=== PATIENT | female | born 1945 | race African-American/Black ===

== ENCOUNTER 2016-12-29 01:36 | Emergency (ER) | payer MEDICARE, MEDICAID ==
[~2016-12-29] VITALS: Ht 170.2 cm; Wt 91.0 kg
[~2016-12-29 01:36] MED LIST: AMLO10TA80 PO; ASPI-1035 PO; DOCU-150 PO; DORZ10DR9 EACHEYE; FERR-63 PO; LEVO250T2 PO; LOP25 PO; SIMV20TA6 PO; SITA100T6 PO; TRAV2.5D EACHEYE
[2016-12-29 01:54] VITALS: BP 149/65
== END 2016-12-29 06:30 | disposition left against medical advice (07) ==
LOC: ER 06:04
DX: Z53.21 Procedure and treatment not carried out due to patient leaving prior to being seen by health care provider (principal); I10 Essential (primary) hypertension; E11.9 Type 2 diabetes mellitus without complications; M19.90 Unspecified osteoarthritis, unspecified site; Z88.0 Allergy status to penicillin; Z88.6 Allergy status to analgesic agent

== ENCOUNTER 2017-01-21 13:12 | Emergency (ER) | payer MEDICARE, MEDICAID ==
[~2017-01-21] VITALS: Ht 170.2 cm; Wt 91.0 kg
[2017-01-21 15:14] LABS: BASOPHILS % 0.6 % (0.0-2.0); EOSINOPHILS % 2.5 % (0.0-5.0); HEMATOCRIT. 32.5 % (36.0-48.0); HEMOGLOBIN. 10.6 g/dL (12.0-16.0); LYMPHOCYTES % 12.4 % (20.0-50.0); MEAN CORPUSCULAR HGB CONC 32.5 g/dL (31.0-37.0); MEAN CORPUSCULAR VOLUME 98.5 fL (81.0-99.0); MEAN PLATELET VOLUME 9.9 fl (7.4-10.4); MONOCYTES % 7.4 % (2.0-8.0); NEUTROPHILS % 77.1 % (40.0-76.0); PLATELET 186 x1000/uL (130-400); RED CELL DISTRIBUTION WIDTH 13.3 % (11.6-14.6); WHITE BLOOD COUNT 8.8 x1000/uL (4.5-11.0)
[2017-01-21 15:15] LABS: CHLORIDE 112 mEq/L (98-107); INDEX HEMOLYSI 1 (1-3); INDEX ICTERIC 1 (1-4); INDEX LIPEMIC 1 (1-3); PROTHROMBIN TIME 10.3 sec
[2017-01-21 15:22] LABS: ALANINE AMINOTRANSFERASE 12 IU/L (13-61); ALBUMIN 3.4 g/dL (3.4-5.0); ANION GAP 14; CALCIUM 8.7 mg/dL (8.5-10.1); CARBON DIOXIDE 22 mEq/L (21-32); UREA NITROGEN BLOOD 34 mg/dL (7-21); eGFR 30 mL/min (>60)
[2017-01-21 18:08] VITALS: BP 114/61
== END 2017-01-21 18:08 | disposition home or self-care (01) ==
LOC: ER 16:15
DX: S83.92XA Sprain of unspecified site of left knee, initial encounter (principal); N28.9 Disorder of kidney and ureter, unspecified; I12.9 Hypertensive chronic kidney disease with stage 1 through stage 4 chronic kidney disease, or unspecified chronic kidney disease; N18.9 Chronic kidney disease, unspecified; M19.90 Unspecified osteoarthritis, unspecified site; E11.9 Type 2 diabetes mellitus without complications; Z88.0 Allergy status to penicillin; Z88.5 Allergy status to narcotic agent; Z79.82 Long term (current) use of aspirin; Z79.899 Other long term (current) drug therapy; Z87.891 Personal history of nicotine dependence; X58.XXXA Exposure to other specified factors, initial encounter; Y93.89 Activity, other specified; Y92.89 Other specified places as the place of occurrence of the external cause; Y99.8 Other external cause status
CPT/HCPCS: 36415; 80053; 85025; 85610; 93971; 99285

== ENCOUNTER 2017-04-11 10:05 | Inpatient (IN) | payer MEDICARE, MEDICAID ==
[~2017-04-11] VITALS: Ht 170.2 cm; Wt 90.7 kg
[~2017-04-11 10:05] MED LIST changes: -ASPI-1035 PO; +ASPI-1159 PO
[2017-04-11 11:36] LABS: BASOPHILS % 0.4 % (0.0-2.0); EOSINOPHILS % 1.6 % (0.0-5.0); HEMATOCRIT. 34.7 % (36.0-48.0); HEMOGLOBIN. 11.5 g/dL (12.0-16.0); LYMPHOCYTES % 11.7 % (20.0-50.0); MEAN CORPUSCULAR HEMOGLOBIN 31.6 pg (28.0-32.0); MEAN CORPUSCULAR VOLUME 95.2 fL (81.0-99.0); MEAN PLATELET VOLUME 9.6 fl (7.4-10.4); MONOCYTES % 7.1 % (2.0-8.0); NEUTROPHILS % 79.2 % (40.0-76.0); PLATELET 192 x1000/uL (130-400); RED BLOOD CELL COUNT 3.64 mill/uL (4.2-5.4); RED CELL DISTRIBUTION WIDTH 13.3 % (11.6-14.6)
[2017-04-11 11:50] LABS: PROTHROMBIN TIME 10.7 sec
[2017-04-11 11:51] LABS: CARBON DIOXIDE 26 mEq/L (21-32); CHLORIDE 113 mEq/L (98-107)
[2017-04-11 11:54] LABS: TROPONIN I < 0.02 ng/mL (0.00-0.04)
[2017-04-11 12:34] LABS: CLARITY URINE CLOUDY (CLEAR); COLOR URINE YELLOW (YELLOW); GLUCOSE URINE NEGATIVE (NEGATIVE); KETONES URINE NEGATIVE (NEGATIVE); LEUKOCYTE ESTERASE URINE 2+ (NEGATIVE); NITRITE URINE NEGATIVE (NEGATIVE); OCCULT BLOOD URINE TRACE (NEGATIVE); PH URINE 5.5 (4.5-8.0); PROTEIN URINE 1+ (NEGATIVE); SPECIFIC GRAVITY URINE 1.009 (1.005-1.030); UROBILINOGEN URINE 0.2 E.U./dL (0.2-1.0)
[2017-04-11] MEDS ORDERED: FUROSEMIDE 40MG/4ML VIAL IVP ONE (13:00)
[2017-04-11] MEDS ORDERED: ASPIRIN 81MG TABLET PO ONE (13:00)
[2017-04-11 17:30] VITALS: BP 160/90
[2017-04-11] MEDS ORDERED: DOCUSATE SODIUM 100MG CAPSULE PO PRN (18:00)
[2017-04-11] MEDS ORDERED: MAGNESIUM/ALUMINUM HYDROXIDE/SIMETHICONE 30ML UDC PO PRN (18:00)
[2017-04-11] MEDS ORDERED: ACETAMINOPHEN 325MG TABLET PO PRN (18:00)
[2017-04-11] MEDS ORDERED: CLONIDINE 0.1MG TABLET PO PRN (18:00)
[2017-04-11] MEDS ORDERED: ENOXAPARIN 40MG/0.4ML SYR SUBCUT SCH (18:00)
[2017-04-11] MEDS ORDERED: DIPHENHYDRAMINE 50MG/ML VIAL IV PRN (18:00)
[2017-04-11] MEDS ORDERED: ONDANSETRON HCL 4MG/2ML VIAL IV PRN (18:00)
[2017-04-11] MEDS ORDERED: GUAIFENESIN 200MG/10ML SUGAR FREE UDC PO PRN (18:00)
[2017-04-11] MEDS: HYDROCODONE/ACETAMINOPHEN 5/325MG TABLET PO PRN ×2 (18:33→22:40)
[2017-04-11 18:45] VITALS: BP 160/90
[2017-04-11 20:00] VITALS: BP 150/85
[2017-04-11] MEDS ORDERED: LEVOFLOXACIN 500MG PREMIX 100 ML IV NR (20:00)
[2017-04-11] MEDS ORDERED: FURO-152 PO (20:11)
[2017-04-11] MEDS ORDERED: SITA100T6 PO (20:14)
[2017-04-11] MEDS ORDERED: DIPH25CA83 PO (20:14)
[2017-04-11] MEDS ORDERED: DEXTROSE 50% WATER 50ML SYRINGE IV PRN (20:15)
[2017-04-11] MEDS ORDERED: DORZ10DR9 EACHEYE (20:23)
[2017-04-11] MEDS ORDERED: TRAV2.5D EACHEYE (20:23)
[2017-04-11] MEDS: METOPROLOL TARTRATE 25MG TABLET PO SCH ×2 (20:43→20:54)
[2017-04-11] MEDS ORDERED: LATANOPROST 0.005% OPHTH DROPS 2.5ML BOTHEYE SCH (21:00)
[2017-04-11] MEDS: BLOOD SUGAR DIAGNOSTIC STRIP TEST SCH (21:00)
[2017-04-11] MEDS ORDERED: NON FORMULARY PATIENT HOME MED EA XX SCH (21:30)
[2017-04-11] MEDS: INSULIN LISPRO 100 UNITS/ML SUBCUT SCH (22:11)
[2017-04-11] MEDS: DORZOLAM/TIMOLOL 2.23/0.68% OPHTH DROPS 10ML BOTHEYE SCH (22:30)
[2017-04-11 23:30] LABS: CREATINE KINASE 81 IU/L (26-192); TROPONIN I < 0.02 ng/mL (0.00-0.04)
[2017-04-11 23:31] LABS: CREATINE KINASE MB FRACTION 1.3 ng/mL (0.5-3.6)
[2017-04-12] VITALS: BP 128/75
[2017-04-12] MEDS: HYDROCODONE/ACETAMINOPHEN 5/325MG TABLET PO PRN (03:42)
[2017-04-12 04:00] VITALS: BP 129/73
[2017-04-12] MEDS: BLOOD SUGAR DIAGNOSTIC STRIP TEST SCH ×2 (06:52→12:06)
[2017-04-12 08:00] VITALS: BP 133/89
[2017-04-12] MEDS ORDERED: AMLODIPINE 10MG TABLET PO SCH (09:00)
[2017-04-12] MEDS ORDERED: ASPIRIN 81MG EC TABLET PO SCH (09:00)
[2017-04-12] MEDS ORDERED: FUROSEMIDE 40MG/4ML VIAL IV SCH (09:00)
[2017-04-12 09:10] LABS: BASOPHILS % 0.4 % (0.0-2.0); EOSINOPHILS % 1.5 % (0.0-5.0); HEMATOCRIT. 33.8 % (36.0-48.0); HEMOGLOBIN. 11.2 g/dL (12.0-16.0); LYMPHOCYTES % 12.6 % (20.0-50.0); MEAN CORPUSCULAR HEMOGLOBIN 31.6 pg (28.0-32.0); MEAN CORPUSCULAR VOLUME 95.3 fL (81.0-99.0); MEAN PLATELET VOLUME 10.2 fl (7.4-10.4); MONOCYTES % 6.4 % (2.0-8.0); NEUTROPHILS % 79.1 % (40.0-76.0); PLATELET 192 x1000/uL (130-400); RED BLOOD CELL COUNT 3.54 mill/uL (4.2-5.4); RED CELL DISTRIBUTION WIDTH 13.7 % (11.6-14.6)
[2017-04-12] MEDS: DORZOLAM/TIMOLOL 2.23/0.68% OPHTH DROPS 10ML BOTHEYE SCH (09:36)
[2017-04-12] MEDS: INSULIN LISPRO 100 UNITS/ML SUBCUT SCH (09:37)
[2017-04-12] MEDS: METOPROLOL TARTRATE 25MG TABLET PO SCH (09:37)
[2017-04-12 09:45] LABS: CARBON DIOXIDE 21 mEq/L (21-32); CHLORIDE 111 mEq/L (98-107); CREATINE KINASE 74 IU/L (26-192); CREATINE KINASE MB FRACTION 1.1 ng/mL (0.5-3.6); HDL CHOLESTEROL 41 mg/dL (40-59); LDL CHOLESTEROL 82 mg/dL (5-100); TROPONIN I < 0.02 ng/mL (0.00-0.04)
[2017-04-12] MEDS ORDERED: LEVOFLOXACIN 250MG PREMIX 50 ML IV SCH (20:00)
== END 2017-04-12 12:25 | disposition left against medical advice (07) | DRG 194 ==
LOC: ER 10:46 → 7WST 14:00 → ENRESERV 14:40 → CANBEDREQ 16:57
PROVIDERS: ADMIT Hospitalist; ATTEND Hospitalist
DX: I13.0 Hypertensive heart and chronic kidney disease with heart failure and stage 1 through stage 4 chronic kidney disease, or unspecified chronic kidney disease (principal); J96.00 Acute respiratory failure, unspecified whether with hypoxia or hypercapnia; E11.22 Type 2 diabetes mellitus with diabetic chronic kidney disease; M19.90 Unspecified osteoarthritis, unspecified site; I50.21 Acute systolic (congestive) heart failure; N18.9 Chronic kidney disease, unspecified; N39.0 Urinary tract infection, site not specified; Z88.6 Allergy status to analgesic agent; Z88.0 Allergy status to penicillin
CPT/HCPCS: 36415; 71010; 80053; 80061; 81001; 82550; 82553; 82962; 83036; 83880; 84484; 85025; 85610; 87077; 87086; 87186; 93005; 93306; 93970; 96374; 99285; J1650; J1815; J1940; J1956; J7050

== ENCOUNTER 2017-08-10 19:15 | Inpatient (IN) | payer MEDICARE, MEDICAID ==
[~2017-08-10] VITALS: Ht 172.7 cm; Wt 113.6 kg
[~2017-08-10 19:15] MED LIST changes: +DIPH25CA83 PO; +FURO-152 PO; +SITA100T11 PO; -SITA100T6 PO
[2017-08-10] MEDS ORDERED: IPRATROPIUM/ALBUTEROL 0.5-3(2.5)MG/3ML NEB HHN ONE (20:00)
[2017-08-10 20:29] LABS: BASOPHILS % 0.6 % (0.0-2.0); EOSINOPHILS % 2.1 % (0.0-5.0); HEMATOCRIT. 33.2 % (36.0-48.0); HEMOGLOBIN. 10.9 g/dL (12.0-16.0); MEAN CORPUSCULAR HEMOGLOBIN 31.4 pg (28.0-32.0); MEAN CORPUSCULAR VOLUME 95.4 fL (81.0-99.0); MONOCYTES % 7.6 % (2.0-8.0); NEUTROPHILS % 78.7 % (40.0-76.0); PLATELET 198 x1000/uL (130-400); RED BLOOD CELL COUNT 3.49 mill/uL (4.2-5.4); RED CELL DISTRIBUTION WIDTH 13.9 % (11.6-14.6)
[2017-08-10 20:37] LABS: PROTHROMBIN TIME 10.5 sec (9.4-11.6)
[2017-08-10 20:48] LABS: CARBON DIOXIDE 20 mEq/L (21-32); CHLORIDE 110 mEq/L (98-107); TROPONIN I < 0.02 ng/mL (0.00-0.04)
[2017-08-10] MEDS ORDERED: ONDANSETRON HCL 4MG/2ML VIAL IV STA (21:05)
[2017-08-10] MEDS ORDERED: SODIUM CHLORIDE 0.9% 1,000 ML IV ONE (21:05)
[2017-08-10] MEDS ORDERED: MORPHINE SULFATE 4 MG/ML CPJ (NOT FOR IM USE) IV STA (21:05)
[2017-08-10] MEDS ORDERED: ASPIRIN 81MG TABLET PO STA (21:12)
[2017-08-10] MEDS ORDERED: FUROSEMIDE 40MG/4ML VIAL IV STA (21:12)
[2017-08-10] MEDS ORDERED: NITROGLYCERIN 0.4MG TABLET SL SL PRN (21:15)
[2017-08-10 21:41] LABS: D-DIMER 1.97 mg/L FEU (<0.50); PARTIAL THROMBOPLASTIN TIME 26.4 sec (23.4-31.0)
[2017-08-11 04:20] VITALS: BP 147/70
[2017-08-11 07:35] VITALS: BP 140/64
[2017-08-11] MEDS ORDERED: MORPHINE SULFATE 4 MG/ML CPJ (NOT FOR IM USE) IV PRN ×2 (07:45→11:30)
[2017-08-11 09:24] LABS: BASOPHILS % 0.4 % (0.0-2.0); EOSINOPHILS % 1.6 % (0.0-5.0); HEMOGLOBIN. 11.4 g/dL (12.0-16.0); LYMPHOCYTES % 9.6 % (20.0-50.0); MEAN CORPUSCULAR HEMOGLOBIN 32.3 pg (28.0-32.0); MEAN CORPUSCULAR VOLUME 96.1 fL (81.0-99.0); MEAN PLATELET VOLUME 10.8 fl (7.4-10.4); MONOCYTES % 6.2 % (2.0-8.0); NEUTROPHILS % 82.2 % (40.0-76.0); PLATELET 201 x1000/uL (130-400); RED BLOOD CELL COUNT 3.54 mill/uL (4.2-5.4); RED CELL DISTRIBUTION WIDTH 13.6 % (11.6-14.6)
[2017-08-11] MEDS ORDERED: DIPHENHYDRAMINE 50MG/ML VIAL IV PRN (11:15)
[2017-08-11] MEDS ORDERED: LORAZEPAM 2MG/ML CPJ IV PRN (11:15)
[2017-08-11] MEDS ORDERED: ONDANSETRON HCL 4MG/2ML VIAL IV PRN (11:15)
[2017-08-11] MEDS ORDERED: FUROSEMIDE 40MG/4ML VIAL IV SCH (11:15)
[2017-08-11] MEDS ORDERED: HYDROCODONE/ACETAMINOPHEN 5/325MG TABLET PO PRN (11:15)
[2017-08-11] MEDS ORDERED: DEXTROSE 50% WATER 50ML SYRINGE IV PRN (11:30)
[2017-08-11] MEDS ORDERED: ENOXAPARIN 40MG/0.4ML SYR SUBCUT SCH (12:00)
[2017-08-11 12:11] VITALS: BP 178/80
[2017-08-11] MEDS ORDERED: MEDICATION NOT ON FORMULARY EA (Simvastatin 20 MG) PO SCH (12:15)
[2017-08-11] MEDS ORDERED: DOCUSATE SODIUM 100MG CAPSULE PO PRN (12:15)
[2017-08-11] MEDS: INSULIN LISPRO 100 UNITS/ML SUBCUT SCH ×3 (13:18→21:11)
[2017-08-11] MEDS: LINAGLIPTIN 5MG TABLET PO SCH (13:19)
[2017-08-11] MEDS: AMLODIPINE 10MG TABLET PO SCH (13:20)
[2017-08-11] MEDS: ASPIRIN 81MG EC TABLET PO SCH (13:20)
[2017-08-11] MEDS: METOPROLOL TARTRATE 25MG TABLET PO SCH ×2 (13:21→21:17)
[2017-08-11] MEDS: FOLIC ACID 1MG TABLET PO SCH (13:22)
[2017-08-11] MEDS: BLOOD SUGAR DIAGNOSTIC STRIP TEST SCH ×3 (13:22→21:19)
[2017-08-11] MEDS: THIAMINE HCL 100MG TABLET PO SCH (13:22)
[2017-08-11] MEDS: ATORVASTATIN CALCIUM 10MG TABLET PO SCH (13:22)
[2017-08-11 15:24] LABS: CREATINE KINASE 77 IU/L (26-192); CREATINE KINASE MB FRACTION 1.4 ng/mL (0.5-3.6); TROPONIN I < 0.02 ng/mL (0.00-0.04)
[2017-08-11 16:12] VITALS: BP 133/62
[2017-08-11] MEDS ORDERED: DIPHENHYDRAMINE 25MG CAPSULE PO PRN (16:30)
[2017-08-11] MEDS ORDERED: MEDICATION NOT ON FORMULARY EA (Travoprost (Travatan Z) 1 DROP) EACHEYE SCH (17:00)
[2017-08-11] MEDS ORDERED: MEDICATION NOT ON FORMULARY EA (Sitagliptin Phosphate (Januvia) 100 MG) PO SCH (17:00)
[2017-08-11 17:39] LABS: CLARITY URINE CLOUDY (CLEAR); COLOR URINE YELLOW (YELLOW); GLUCOSE URINE 1+ (NEGATIVE); KETONES URINE NEGATIVE (NEGATIVE); LEUKOCYTE ESTERASE URINE 3+ (NEGATIVE); NITRITE URINE NEGATIVE (NEGATIVE); OCCULT BLOOD URINE TRACE (NEGATIVE); PROTEIN URINE 2+ (NEGATIVE); SPECIFIC GRAVITY URINE 1.016 (1.005-1.030); UROBILINOGEN URINE 0.2 E.U./dL (0.2-1.0)
[2017-08-11] MEDS: DORZOLAM/TIMOLOL 2.23/0.68% OPHTH DROPS 10ML EACHEYE SCH (17:43)
[2017-08-11 18:20] LABS: *AMPHETAMINES SCREEN URINE NEGATIVE (NEGATIVE); *BARBITURATES SCREEN URINE NEGATIVE (NEGATIVE); *BENZODIAZEPINES SCREEN URINE NEGATIVE (NEGATIVE); *COCAINE SCREEN URINE PRESUMTIVE POSITIVE (NEGATIVE); CANNABINOID URINE SCREEN NEGATIVE (NEGATIVE); METHADONE URINE SCREEN NEGATIVE (NEGATIVE); OPIATES URINE SCREEN PRESUMTIVE POSITIVE (NEGATIVE); PHENCYCLIDINE URINE SCREEN NEGATIVE (NEGATIVE)
[2017-08-11 20:00] VITALS: BP 137/67
[2017-08-11] MEDS ORDERED: LATANOPROST 0.005% OPHTH DROPS 2.5ML BOTHEYE SCH (21:00)
[2017-08-11 23:21] LABS: CREATINE KINASE 74 IU/L (26-192); TROPONIN I < 0.02 ng/mL (0.00-0.04)
[2017-08-12 00:47] VITALS: BP 142/73
[2017-08-12 04:00] VITALS: BP 144/64
[2017-08-12] MEDS: BLOOD SUGAR DIAGNOSTIC STRIP TEST SCH (06:25)
[2017-08-12 07:23] VITALS: BP 133/68
[2017-08-12] MEDS ORDERED: FUROSEMIDE 20MG/2ML VIAL IVP SCH ×2 (09:00)
[2017-08-12] MEDS ORDERED: FUROSEMIDE 20MG TABLET PO SCH (09:00)
[2017-08-12 09:03] LABS: CREATINE KINASE 65 IU/L (26-192); CREATINE KINASE MB FRACTION 1.3 ng/mL (0.5-3.6); TROPONIN I < 0.02 ng/mL (0.00-0.04)
[2017-08-12] MEDS: DORZOLAM/TIMOLOL 2.23/0.68% OPHTH DROPS 10ML EACHEYE SCH (09:34)
[2017-08-12] MEDS: FOLIC ACID 1MG TABLET PO SCH (09:36)
[2017-08-12] MEDS: METOPROLOL TARTRATE 25MG TABLET PO SCH (09:36)
[2017-08-12] MEDS: THIAMINE HCL 100MG TABLET PO SCH (09:36)
[2017-08-12] MEDS: ATORVASTATIN CALCIUM 10MG TABLET PO SCH (09:36)
[2017-08-12] MEDS: ASPIRIN 81MG EC TABLET PO SCH (09:37)
[2017-08-12] MEDS: AMLODIPINE 10MG TABLET PO SCH (09:38)
[2017-08-12] MEDS: INSULIN LISPRO 100 UNITS/ML SUBCUT SCH (09:48)
[2017-08-12] MEDS: LINAGLIPTIN 5MG TABLET PO SCH (09:49)
[2017-08-13] MEDS ORDERED: LEVOFLOXACIN 250MG TABLET PO SCH (11:00)
== END 2017-08-12 10:30 | disposition left against medical advice (07) | DRG 816 ==
LOC: ER 19:15 → 6WST 08-11 00:23 → ENRESERV 08-11 02:32
PROVIDERS: ADMIT Internal Medicine Nephrology; ATTEND Internal Medicine Nephrology
DX: T40.5X1A Poisoning by cocaine, accidental (unintentional), initial encounter (principal); J96.00 Acute respiratory failure, unspecified whether with hypoxia or hypercapnia; I50.43 Acute on chronic combined systolic (congestive) and diastolic (congestive) heart failure; I13.0 Hypertensive heart and chronic kidney disease with heart failure and stage 1 through stage 4 chronic kidney disease, or unspecified chronic kidney disease; E11.22 Type 2 diabetes mellitus with diabetic chronic kidney disease; D64.9 Anemia, unspecified; E44.1 Mild protein-calorie malnutrition; E78.00 Pure hypercholesterolemia, unspecified; E78.5 Hyperlipidemia, unspecified; F17.200 Nicotine dependence, unspecified, uncomplicated; N18.4 Chronic kidney disease, stage 4 (severe); N39.0 Urinary tract infection, site not specified; M19.90 Unspecified osteoarthritis, unspecified site; Z53.21 Procedure and treatment not carried out due to patient leaving prior to being seen by health care provider; R07.81 Pleurodynia; E66.01 Morbid (severe) obesity due to excess calories; Z82.49 Family history of ischemic heart disease and other diseases of the circulatory system; Z83.3 Family history of diabetes mellitus; Z68.38 Body mass index [BMI] 38.0-38.9, adult; Z72.89 Other problems related to lifestyle; Z79.899 Other long term (current) drug therapy; Z79.82 Long term (current) use of aspirin; Z79.2 Long term (current) use of antibiotics; Z88.0 Allergy status to penicillin; Z88.5 Allergy status to narcotic agent
CPT/HCPCS: 36415; 71010; 74176; 78582; 80048; 80053; 80305; 81001; 82550; 82553; 82962; 83690; 83880; 84443; 84484; 85025; 85379; 85610; 85730; 87077; 87086; 87186; 93005; 93970; 94640; 96361; 96374; 96375; 99285; A9558; J1650; J1815; J1940; J2270; J2405; J7030; J7620; Q0163

== ENCOUNTER 2017-12-24 04:24 | Inpatient (IN) | payer MEDICARE, MEDICAID ==
[~2017-12-24] VITALS: Ht 170.2 cm; Wt 90.7 kg
[2017-12-24] MEDS ORDERED: ASPIRIN 81MG TABLET PO ONE (05:30)
[2017-12-24 06:06] LABS: BASOPHILS % 0.5 % (0.0-2.0); EOSINOPHILS % 2.1 % (0.0-5.0); HEMATOCRIT. 28.8 % (36.0-48.0); HEMOGLOBIN. 9.4 g/dL (12.0-16.0); MEAN CORPUSCULAR HEMOGLOBIN 31.8 pg (28.0-32.0); NEUTROPHILS % 79.4 % (40.0-76.0); PLATELET 216 x1000/uL (130-400); RED BLOOD CELL COUNT 2.97 mill/uL (4.2-5.4); RED CELL DISTRIBUTION WIDTH 14.5 % (11.6-14.6)
[2017-12-24 06:14] LABS: PROTHROMBIN TIME 10.4 sec (9.4-11.6)
[2017-12-24 06:18] LABS: CHLORIDE 114 mEq/L (98-107); ETHANOL BLOOD < 10 mg/dL
[2017-12-24 06:38] LABS: CLARITY URINE CLOUDY (CLEAR); COLOR URINE YELLOW (YELLOW); KETONES URINE NEGATIVE (NEGATIVE); LEUKOCYTE ESTERASE URINE 2+ (NEGATIVE); NITRITE URINE NEGATIVE (NEGATIVE); OCCULT BLOOD URINE NEGATIVE (NEGATIVE); PROTEIN URINE 2+ (NEGATIVE); SPECIFIC GRAVITY URINE 1.017 (1.005-1.030); UROBILINOGEN URINE 0.2 E.U./dL (0.2-1.0)
[2017-12-24 07:29] LABS: *AMPHETAMINES SCREEN URINE NEGATIVE (NEGATIVE); *BARBITURATES SCREEN URINE NEGATIVE (NEGATIVE); *COCAINE SCREEN URINE PRESUMTIVE POSITIVE (NEGATIVE); METHADONE URINE SCREEN NEGATIVE (NEGATIVE)
[2017-12-24 07:31] LABS: *BENZODIAZEPINES SCREEN URINE NEGATIVE (NEGATIVE); CANNABINOID URINE SCREEN NEGATIVE (NEGATIVE); OPIATES URINE SCREEN PRESUMTIVE POSITIVE (NEGATIVE); PHENCYCLIDINE URINE SCREEN NEGATIVE (NEGATIVE)
[2017-12-24] MEDS ORDERED: KETOROLAC 30MG/ML VIAL IV ONE (08:30)
[2017-12-24] MEDS ORDERED: ASPIRIN 325MG EC TABLET PO ONE (09:15)
[2017-12-24] MEDS ORDERED: CLONIDINE 0.1MG TABLET PO PRN (12:45)
[2017-12-24] MEDS ORDERED: DOCUSATE SODIUM 100MG CAPSULE PO PRN (12:45)
[2017-12-24] MEDS ORDERED: NITROGLYCERIN 0.4MG TABLET SL SL PRN (12:45)
[2017-12-24] MEDS ORDERED: DIPHENHYDRAMINE 50MG/ML VIAL IV PRN (12:45)
[2017-12-24] MEDS ORDERED: NA PHOS,M-B/NA PHOS,DI-BA ENEMA 118ML PR PRN (12:45)
[2017-12-24] MEDS ORDERED: MAGNESIUM/ALUMINUM HYDROXIDE/SIMETHICONE 30ML UDC PO PRN (12:45)
[2017-12-24] MEDS ORDERED: IPRATROPIUM/ALBUTEROL 0.5-3(2.5)MG/3ML NEB INH PRN (12:45)
[2017-12-24] MEDS ORDERED: ONDANSETRON HCL 4MG/2ML VIAL IV PRN (12:45)
[2017-12-24] MEDS ORDERED: ACETAMINOPHEN 325MG TABLET PO PRN (12:45)
[2017-12-24] MEDS ORDERED: GUAIFENESIN 200MG/10ML SUGAR FREE UDC PO PRN (12:45)
[2017-12-24 12:53] VITALS: BP 186/88
[2017-12-24] MEDS ORDERED: METO-396 PO (13:03)
[2017-12-24 13:07] VITALS: BP 186/88
[2017-12-24] MEDS: ENOXAPARIN 40MG/0.4ML SYR SUBCUT SCH (13:38)
[2017-12-24] MEDS ORDERED: DEXTROSE 50% WATER 50ML SYRINGE IV PRN (15:30)
[2017-12-24 15:59] LABS: CREATINE KINASE 49 IU/L (26-192); CREATINE KINASE MB FRACTION 1.2 ng/mL (0.5-3.6)
[2017-12-24 16:07] VITALS: BP 116/57
[2017-12-24] MEDS ORDERED: MEDICATION NOT ON FORMULARY EA (Travoprost (Travatan Z) 1 DROP) EACHEYE SCH (17:00)
[2017-12-24] MEDS ORDERED: DORZOLAM/TIMOLOL 2.23/0.68% OPHTH DROPS 10ML EACHEYE SCH (17:00)
[2017-12-24] MEDS: BLOOD SUGAR DIAGNOSTIC STRIP TEST SCH ×2 (18:07→21:28)
[2017-12-24] MEDS: INSULIN LISPRO 100 UNITS/ML SUBCUT SCH ×2 (18:15→21:39)
[2017-12-24] MEDS: LORAZEPAM 0.5MG TABLET PO PRN (18:15)
[2017-12-24 20:00] VITALS: BP 137/69
[2017-12-24] MEDS ORDERED: ZOLPIDEM TARTRATE 5MG TABLET PO PRN (21:00)
[2017-12-24] MEDS: KETOROLAC 15MG/ML VIAL IV PRN (21:27)
[2017-12-24] MEDS: LISINOPRIL 20MG TABLET PO SCH (21:27)
[2017-12-24] MEDS: DORZOLAM/TIMOLOL 2.23/0.68% OPHTH DROPS 10ML EACHEYE SCH (21:28)
[2017-12-24] MEDS: LATANOPROST 0.005% OPHTH DROPS 2.5ML EACHEYE SCH (21:28)
[2017-12-24] MEDS: CEFTRIAXONE 1 G PREMIX 50 ML IV SCH (22:02)
[2017-12-24 23:42] LABS: CREATINE KINASE 41 IU/L (26-192); CREATINE KINASE MB FRACTION 1.2 ng/mL (0.5-3.6)
[2017-12-25] VITALS: BP 116/87
[2017-12-25 04:36] VITALS: BP 104/55
[2017-12-25] MEDS: BLOOD SUGAR DIAGNOSTIC STRIP TEST SCH ×4 (06:49→21:18)
[2017-12-25 08:00] VITALS: BP 125/61
[2017-12-25] MEDS: PANTOPRAZOLE SODIUM 40 MG/VIAL IV SCH (08:31)
[2017-12-25] MEDS: DORZOLAM/TIMOLOL 2.23/0.68% OPHTH DROPS 10ML EACHEYE SCH ×3 (08:31→19:26)
[2017-12-25] MEDS: ASPIRIN 325MG EC TABLET PO SCH (08:31)
[2017-12-25] MEDS: LISINOPRIL 20MG TABLET PO SCH (08:32)
[2017-12-25] MEDS: KETOROLAC 15MG/ML VIAL IV PRN ×2 (08:32→21:19)
[2017-12-25] MEDS: ENOXAPARIN 40MG/0.4ML SYR SUBCUT SCH (08:34)
[2017-12-25] MEDS: INSULIN LISPRO 100 UNITS/ML SUBCUT SCH ×4 (08:35→21:18)
[2017-12-25 08:44] LABS: CHLORIDE 114 mEq/L (98-107)
[2017-12-25 12:00] VITALS: BP 133/63
[2017-12-25] MEDS ORDERED: SODIUM POLYSTYRENE SULFONATE 15 G/60 ML BOT PO SCH (12:45)
[2017-12-25 16:00] VITALS: BP 128/66
[2017-12-25 20:00] VITALS: BP 145/76
[2017-12-25] MEDS: CEFTRIAXONE 1 G PREMIX 50 ML IV SCH (21:17)
[2017-12-25] MEDS: LATANOPROST 0.005% OPHTH DROPS 2.5ML EACHEYE SCH (21:18)
[2017-12-26] VITALS: BP 143/67
[2017-12-26] MEDS: LORAZEPAM 0.5MG TABLET PO PRN ×2 (01:23→09:02)
[2017-12-26 04:00] VITALS: BP 140/68
[2017-12-26] MEDS: BLOOD SUGAR DIAGNOSTIC STRIP TEST SCH (07:20)
[2017-12-26 08:16] VITALS: BP 145/68
[2017-12-26] MEDS: PANTOPRAZOLE SODIUM 40 MG/VIAL IV SCH ×2 (09:00→09:03)
[2017-12-26 09:02] VITALS: BP 145/68
[2017-12-26] MEDS: DORZOLAM/TIMOLOL 2.23/0.68% OPHTH DROPS 10ML EACHEYE SCH (09:02)
[2017-12-26] MEDS: KETOROLAC 15MG/ML VIAL IV PRN (09:02)
[2017-12-26] MEDS: ASPIRIN 325MG EC TABLET PO SCH (09:03)
[2017-12-26] MEDS: ENOXAPARIN 40MG/0.4ML SYR SUBCUT SCH (09:04)
[2017-12-26] MEDS: INSULIN LISPRO 100 UNITS/ML SUBCUT SCH (09:22)
== END 2017-12-26 11:45 | disposition home or self-care (01) | DRG 816 ==
LOC: ER 04:24 → 6WST 09:06 → EDBEDREQ 09:07 → ENRESERV 10:39
PROVIDERS: ADMIT Internal Medicine; ATTEND Internal Medicine
DX: T40.5X1A Poisoning by cocaine, accidental (unintentional), initial encounter (principal); N17.0 Acute kidney failure with tubular necrosis; I20.1 Angina pectoris with documented spasm; E44.0 Moderate protein-calorie malnutrition; E11.51 Type 2 diabetes mellitus with diabetic peripheral angiopathy without gangrene; E11.65 Type 2 diabetes mellitus with hyperglycemia; D63.8 Anemia in other chronic diseases classified elsewhere; I10 Essential (primary) hypertension; R07.9 Chest pain, unspecified; E66.9 Obesity, unspecified; M19.90 Unspecified osteoarthritis, unspecified site; Z68.31 Body mass index [BMI] 31.0-31.9, adult; Z88.0 Allergy status to penicillin; Z88.5 Allergy status to narcotic agent; Z79.899 Other long term (current) drug therapy; Z79.82 Long term (current) use of aspirin; Z71.51 Drug abuse counseling and surveillance of drug abuser; Y92.89 Other specified places as the place of occurrence of the external cause
CPT/HCPCS: 36415; 71045; 80053; 80061; 80305; 81003; 82550; 82553; 82962; 83036; 83690; 83880; 84484; 85025; 85610; 87086; 93005; 93970; 96374; 99285; C9113; G0482; J0696; J1650; J1815; J1885; J7050

== ENCOUNTER 2018-02-04 22:55 | Emergency (ER) | payer MEDICARE, MEDICAID ==
[~2018-02-04] VITALS: Ht 170.2 cm; Wt 91.0 kg
[~2018-02-04 22:55] MED LIST changes: +METO-396 PO
[2018-02-04] MEDS ORDERED: SODIUM CHLORIDE 0.9% 1,000 ML IV ONE (23:27)
[2018-02-04] MEDS ORDERED: INSULIN REGULAR (HUMULIN R) 300UNITS/3ML IV ONE (23:30)
[2018-02-05 00:09] LABS: BASOPHILS % 0.6 % (0.0-2.0); EOSINOPHILS % 2.2 % (0.0-5.0); HEMATOCRIT. 29.7 % (36.0-48.0); HEMOGLOBIN. 10.1 g/dL (12.0-16.0); LYMPHOCYTES % 11.5 % (20.0-50.0); MEAN CORPUSCULAR HEMOGLOBIN 32.8 pg (28.0-32.0); MEAN CORPUSCULAR VOLUME 96.2 fL (81.0-99.0); MEAN PLATELET VOLUME 10.4 fl (7.4-10.4); MONOCYTES % 7.3 % (2.0-8.0); NEUTROPHILS % 78.4 % (40.0-76.0); PLATELET 196 x1000/uL (130-400); RED BLOOD CELL COUNT 3.08 mill/uL (4.2-5.4); RED CELL DISTRIBUTION WIDTH 14.4 % (11.6-14.6)
[2018-02-05 00:15] LABS: PROTHROMBIN TIME 10.3 sec (9.4-11.6)
[2018-02-05 00:50] LABS: CLARITY URINE CLOUDY (CLEAR); COLOR URINE YELLOW (YELLOW); KETONES URINE NEGATIVE (NEGATIVE); LEUKOCYTE ESTERASE URINE 3+ (NEGATIVE); NITRITE URINE NEGATIVE (NEGATIVE); OCCULT BLOOD URINE TRACE (NEGATIVE); PROTEIN URINE 2+ (NEGATIVE); SPECIFIC GRAVITY URINE 1.014 (1.005-1.030); UROBILINOGEN URINE 0.2 E.U./dL (0.2-1.0)
[2018-02-05 00:54] LABS: CHLORIDE 111 mEq/L (98-107)
[2018-02-05 01:02] LABS: ETHANOL BLOOD < 10 mg/dL
[2018-02-05 01:04] LABS: BETA HYDROXYBUTYRATE 0.1 mMol/L (0.0-0.3)
[2018-02-05 02:11] LABS: *AMPHETAMINES SCREEN URINE NEGATIVE (NEGATIVE); *BARBITURATES SCREEN URINE NEGATIVE (NEGATIVE)
[2018-02-05 02:12] LABS: *BENZODIAZEPINES SCREEN URINE NEGATIVE (NEGATIVE); *COCAINE SCREEN URINE NEGATIVE (NEGATIVE); CANNABINOID URINE SCREEN NEGATIVE (NEGATIVE); METHADONE URINE SCREEN NEGATIVE (NEGATIVE); OPIATES URINE SCREEN NEGATIVE (NEGATIVE); PHENCYCLIDINE URINE SCREEN NEGATIVE (NEGATIVE)
[2018-02-05] MEDS ORDERED: KETOROLAC 30MG/ML VIAL IV NR (02:14)
[2018-02-05] MEDS ORDERED: INSULIN REGULAR (HUMULIN R) 300UNITS/3ML IV NR (02:15)
[2018-02-05] MEDS ORDERED: CEFTRIAXONE 1 G PREMIX 50 ML IV NR (02:15)
[2018-02-05 04:40] VITALS: BP 154/75
== END 2018-02-05 04:40 | disposition home or self-care (01) ==
LOC: ER 22:55
DX: E11.65 Type 2 diabetes mellitus with hyperglycemia (principal); M54.2 Cervicalgia; I10 Essential (primary) hypertension; H40.9 Unspecified glaucoma; E78.00 Pure hypercholesterolemia, unspecified; Z88.5 Allergy status to narcotic agent; Z88.0 Allergy status to penicillin; Z87.891 Personal history of nicotine dependence; N39.0 Urinary tract infection, site not specified
CPT/HCPCS: 36415; 80053; 80305; 81003; 82010; 82962; 83690; 85025; 85610; 87077; 87086; 87186; 96361; 96365; 96375; 96376; 99284; G0482; J0696; J1815; J1885; J7030

== ENCOUNTER 2018-02-09 22:21 | Emergency (ER) | payer MEDICARE, MEDICAID ==
[~2018-02-09] VITALS: Ht 170.2 cm; Wt 96.0 kg
[2018-02-09 23:15] LABS: BASOPHILS % 0.5 % (0.0-2.0); EOSINOPHILS % 2.7 % (0.0-5.0); HEMATOCRIT. 29.2 % (36.0-48.0); HEMOGLOBIN. 9.8 g/dL (12.0-16.0); LYMPHOCYTES % 14.4 % (20.0-50.0); MEAN CORPUSCULAR HEMOGLOBIN 32.3 pg (28.0-32.0); MEAN CORPUSCULAR VOLUME 96.2 fL (81.0-99.0); MEAN PLATELET VOLUME 9.8 fl (7.4-10.4); MONOCYTES % 7.6 % (2.0-8.0); NEUTROPHILS % 74.8 % (40.0-76.0); PLATELET 207 x1000/uL (130-400); RED BLOOD CELL COUNT 3.03 mill/uL (4.2-5.4); RED CELL DISTRIBUTION WIDTH 14.4 % (11.6-14.6)
[2018-02-09 23:18] LABS: CHLORIDE 113 mEq/L (98-107)
[2018-02-10 02:15] VITALS: BP 151/74
== END 2018-02-10 02:40 | disposition home or self-care (01) ==
LOC: ER 22:21
DX: E11.65 Type 2 diabetes mellitus with hyperglycemia (principal); I10 Essential (primary) hypertension; D64.9 Anemia, unspecified; N28.9 Disorder of kidney and ureter, unspecified; R42 Dizziness and giddiness; E78.00 Pure hypercholesterolemia, unspecified; H40.9 Unspecified glaucoma; Z88.0 Allergy status to penicillin; Z88.5 Allergy status to narcotic agent
CPT/HCPCS: 36415; 80053; 82962; 85025; 93005; 99285

== ENCOUNTER 2018-04-18 15:24 | Emergency (ER) | payer MEDICARE, MEDICAID ==
[~2018-04-18] VITALS: Ht 170.2 cm; Wt 109.0 kg
[~2018-04-18 15:24] MED LIST changes: +AMIO100T4 PO; -AMLO10TA80 PO; -DIPH25CA83 PO; -DOCU-150 PO; +DOXA2TAB2 PO; -FERR-63 PO; -FURO-152 PO; +FURO40TA5 PO; +GABA-531 PO; +GLIP5TAB12 PO; -LEVO250T2 PO; -LOP25 PO; +LORA1TAB PO; +LOSA50TA20 PO; +METO-385 PO; -METO-396 PO; -SITA100T11 PO; +SITA25TA3 PO; +TAMS0.4C31 PO
[2018-04-18 20:11] LABS: CLARITY URINE CLOUDY (CLEAR); COLOR URINE YELLOW (YELLOW); KETONES URINE NEGATIVE (NEGATIVE); LEUKOCYTE ESTERASE URINE 3+ (NEGATIVE); NITRITE URINE POSITIVE (NEGATIVE); OCCULT BLOOD URINE 2+ (NEGATIVE); PROTEIN URINE 2+ (NEGATIVE); SPECIFIC GRAVITY URINE 1.013 (1.005-1.030)
[2018-04-18 23:13] VITALS: BP 152/70
== END 2018-04-18 23:40 | disposition home or self-care (01) ==
LOC: ER 16:49
DX: Z46.6 Encounter for fitting and adjustment of urinary device (principal); N39.0 Urinary tract infection, site not specified; R33.9 Retention of urine, unspecified; E11.22 Type 2 diabetes mellitus with diabetic chronic kidney disease; I12.9 Hypertensive chronic kidney disease with stage 1 through stage 4 chronic kidney disease, or unspecified chronic kidney disease; H40.9 Unspecified glaucoma; N18.9 Chronic kidney disease, unspecified; M19.90 Unspecified osteoarthritis, unspecified site; Z88.0 Allergy status to penicillin; Z88.5 Allergy status to narcotic agent; Z79.82 Long term (current) use of aspirin
CPT/HCPCS: 51702; 81003; 87077; 87086; 87186; 99284; A4315

== ENCOUNTER 2018-08-24 15:49 | Inpatient (IN) | payer MEDICARE, MEDICAID ==
[~2018-08-24] VITALS: Ht 170.2 cm; Wt 127.9 kg
[2018-08-24] MEDS ORDERED: NITROGLYCERIN OINT 1GM/INCH UDPKT TD ONE (16:30)
[2018-08-24 16:55] LABS: BASOPHILS % 0.4 % (0.0-2.0); EOSINOPHILS % 3.1 % (0.0-5.0); HEMATOCRIT. 27.6 % (36.0-48.0); HEMOGLOBIN. 9.2 g/dL (12.0-16.0); LYMPHOCYTES % 11.6 % (20.0-50.0); MEAN CORPUSCULAR HEMOGLOBIN 31.8 pg (28.0-32.0); MEAN CORPUSCULAR VOLUME 95.2 fL (81.0-99.0); MEAN PLATELET VOLUME 9.7 fl (7.4-10.4); MONOCYTES % 6.8 % (2.0-8.0); NEUTROPHILS % 78.1 % (40.0-76.0); PLATELET 205 x1000/uL (130-400); RED CELL DISTRIBUTION WIDTH 15.6 % (11.6-14.6)
[2018-08-24 17:00] LABS: CHLORIDE 109 mEq/L (98-107); INR 1.1; PROTHROMBIN TIME 10.7 sec (9.1-11.1)
[2018-08-24] MEDS ORDERED: INSULIN LISPRO 100 UNITS/ML SUBCUT SCH (18:20)
[2018-08-24] MEDS ORDERED: MAGNESIUM/ALUMINUM HYDROXIDE/SIMETHICONE 30ML UDC PO PRN (18:30)
[2018-08-24] MEDS ORDERED: ENOXAPARIN 40MG/0.4ML SYR SUBCUT SCH (18:30)
[2018-08-24] MEDS ORDERED: ONDANSETRON HCL 4MG/2ML INJ IV PRN (18:30)
[2018-08-24] MEDS ORDERED: NITROGLYCERIN 0.4MG TABLET SL SL PRN (18:30)
[2018-08-24] MEDS ORDERED: IPRATROPIUM/ALBUTEROL 0.5-3(2.5)MG/3ML NEB INH PRN (18:30)
[2018-08-24] MEDS ORDERED: GUAIFENESIN 200MG/10ML SUGAR FREE UDC PO PRN (18:30)
[2018-08-24] MEDS ORDERED: CLONIDINE 0.1MG TABLET PO PRN (18:30)
[2018-08-24] MEDS ORDERED: ACETAMINOPHEN 325MG TABLET PO PRN (18:30)
[2018-08-24 18:43] LABS: CLARITY URINE TURBID (CLEAR); COLOR URINE YELLOW (YELLOW); KETONES URINE NEGATIVE (NEGATIVE); LEUKOCYTE ESTERASE URINE 3+ (NEGATIVE); NITRITE URINE NEGATIVE (NEGATIVE); OCCULT BLOOD URINE TRACE (NEGATIVE); PROTEIN URINE 1+ (NEGATIVE); UROBILINOGEN URINE 0.2 E.U./dL (0.2-1.0)
[2018-08-24 18:47] LABS: *AMPHETAMINES SCREEN URINE NEGATIVE (NEGATIVE); *BARBITURATES SCREEN URINE NEGATIVE (NEGATIVE); *BENZODIAZEPINES SCREEN URINE NEGATIVE (NEGATIVE); *COCAINE SCREEN URINE NEGATIVE (NEGATIVE); CANNABINOID URINE SCREEN NEGATIVE (NEGATIVE); METHADONE URINE SCREEN NEGATIVE (NEGATIVE); OPIATES URINE SCREEN NEGATIVE (NEGATIVE); PHENCYCLIDINE URINE SCREEN NEGATIVE (NEGATIVE)
[2018-08-24] MEDS: INSULIN LISPRO 100 UNITS/ML SUBCUT SCH (19:03)
[2018-08-24] MEDS ORDERED: ZOLPIDEM TARTRATE 5MG TABLET PO PRN (20:45)
[2018-08-24] MEDS: TRAMADOL 50MG TABLET PO PRN (20:49)
[2018-08-24] MEDS ORDERED: LEVOFLOXACIN 500MG PREMIX 100 ML IV ONE (22:00)
[2018-08-24 22:30] VITALS: BP 120/60
[2018-08-24] MEDS: LORAZEPAM 0.5MG TABLET PO PRN (23:53)
[2018-08-25] MEDS ORDERED: DEXTROSE 50% WATER 50ML SYRINGE IV PRN (01:42)
[2018-08-25 02:00] VITALS: BP 120/60
[2018-08-25] MEDS: TRAMADOL 50MG TABLET PO PRN ×2 (03:09→16:00)
[2018-08-25 04:00] VITALS: BP 126/61
[2018-08-25] MEDS ORDERED: AMLO10TA80 PO (04:29)
[2018-08-25] MEDS ORDERED: METO25TA6 PO (04:29)
[2018-08-25] MEDS ORDERED: ACET-2178 PO (04:29)
[2018-08-25] MEDS ORDERED: TIMO5DRO32 RIGHTEYE (04:37)
[2018-08-25] MEDS ORDERED: DIFL5DRO LEFTEYE (04:37)
[2018-08-25] MEDS ORDERED: BRIN8DRO RIGHTEYE (04:37)
[2018-08-25] MEDS ORDERED: BROM3DRO LEFTEYE (04:37)
[2018-08-25 06:28] LABS: CREATINE KINASE 112 IU/L (26-192); CREATINE KINASE MB FRACTION 1.5 ng/mL (0.5-3.6); HDL CHOLESTEROL 50 mg/dL (40-59); LDL CHOLESTEROL 58 mg/dL (5-100)
[2018-08-25] MEDS: BLOOD SUGAR DIAGNOSTIC STRIP TEST SCH ×4 (06:31→21:00)
[2018-08-25] MEDS: HYDRALAZINE HCL 50MG TABLET PO SCH ×3 (06:31→20:33)
[2018-08-25] MEDS: INSULIN LISPRO 100 UNITS/ML SUBCUT SCH ×4 (06:32→21:00)
[2018-08-25 08:00] VITALS: BP 138/75
[2018-08-25] MEDS: PANTOPRAZOLE SODIUM 40 MG/VIAL IV SCH (08:31)
[2018-08-25] MEDS: FOLIC ACID/VITAMIN B COMP W-C TABLET PO SCH (08:32)
[2018-08-25] MEDS: METOPROLOL TARTRATE 25MG TABLET PO SCH ×2 (08:32→20:44)
[2018-08-25] MEDS: FUROSEMIDE 40MG/4ML VIAL IVP SCH ×2 (08:33→20:33)
[2018-08-25] MEDS: ASPIRIN 325MG EC TABLET PO SCH (08:33)
[2018-08-25] MEDS ORDERED: ENOXAPARIN 30MG/0.3ML SYR SUBCUT SCH (09:00)
[2018-08-25 09:51] LABS: BG BASE EXCESS -7.2 mmol/L (-2.0-2.0); BG CARBOXYHEMOGLOBIN 0.7 % (0.5-1.5); BG DEOXYHEMOGLOBIN 3.2 % (0.0-5.0); BG HCO3 ACT 18.6 mmol/L (22.0-26.0); BG METHEMOGLOBIN 0.3 % (0.0-1.5); BG OXYGEN SATURATION 96.8 % (92.0-98.5); BG OXYHEMOGLOBIN 95.8 % (94.0-97.0); BG PCO2 38.5 mmHg (35.0-45.0); BG PH 7.301 (7.350-7.450); BG PO2 103.7 mmHg (75.0-100.0); BG SAMPLE SITE RIGHT RADIAL; BG TOTAL HEMOGLOBIN 9.2 g/dL (12.0-18.0); BG VENT MODE NASAL CANNULA
[2018-08-25] MEDS ORDERED: MEROPENEM 1,000 MG in SODIUM CHLORIDE 0.9% 100 ML IV SCH (10:30)
[2018-08-25] MEDS ORDERED: MEROPENEM 500MG in NORMAL SALINE 50ML IV SCH (11:30)
[2018-08-25] MEDS ORDERED: LIDOCAINE HCL/PF 1% 2ML VIAL ONE (14:50)
[2018-08-25 16:00] VITALS: BP 139/58
[2018-08-25 19:18] LABS: *AMPHETAMINES SCREEN URINE NEGATIVE (NEGATIVE); *BARBITURATES SCREEN URINE NEGATIVE (NEGATIVE); *BENZODIAZEPINES SCREEN URINE NEGATIVE (NEGATIVE); *COCAINE SCREEN URINE NEGATIVE (NEGATIVE); CANNABINOID URINE SCREEN NEGATIVE (NEGATIVE); METHADONE URINE SCREEN NEGATIVE (NEGATIVE); OPIATES URINE SCREEN NEGATIVE (NEGATIVE); PHENCYCLIDINE URINE SCREEN NEGATIVE (NEGATIVE)
[2018-08-25 20:00] VITALS: BP 145/70
[2018-08-25] MEDS ORDERED: BROMFENAC SODIUM 0.09% OPHTH DROPS 2.5ML LEFTEYE SCH (21:00)
[2018-08-25] MEDS ORDERED: EPOETIN ALFA 4000UNITS/ML VIAL SUBCUT NR (21:00)
[2018-08-26] VITALS (7 sets, daily range): BP systolic 135–148; BP diastolic 64–83
[2018-08-26] MEDS ORDERED: TIMOLOL MALEATE 0.5% OPHTH DROPS 5ML RIGHTEYE SCH (01:00)
[2018-08-26] MEDS: TRAVATAN Z 0.004% OP SCH ×2 (02:07→21:00)
[2018-08-26] MEDS: MEROPENEM 500MG in NORMAL SALINE 50ML IV SCH ×2 (06:15→15:27)
[2018-08-26] MEDS: HYDRALAZINE HCL 50MG TABLET PO SCH ×3 (06:15→20:43)
[2018-08-26] MEDS: BLOOD SUGAR DIAGNOSTIC STRIP TEST SCH ×4 (06:16→21:27)
[2018-08-26] MEDS: INSULIN LISPRO 100 UNITS/ML SUBCUT SCH ×4 (06:44→21:27)
[2018-08-26] MEDS ORDERED: POVIDONE-IODINE OINT 28.4GM TOP ONE (07:38)
[2018-08-26 07:57] LABS: BASOPHILS % 0.4 % (0.0-2.0); EOSINOPHILS % 3.3 % (0.0-5.0); HEMATOCRIT. 26.8 % (36.0-48.0); HEMOGLOBIN. 8.9 g/dL (12.0-16.0); LYMPHOCYTES % 11.1 % (20.0-50.0); MEAN CORPUSCULAR HEMOGLOBIN 31.6 pg (28.0-32.0); MEAN CORPUSCULAR VOLUME 94.9 fL (81.0-99.0); MEAN PLATELET VOLUME 9.1 fl (7.4-10.4); MONOCYTES % 8.6 % (2.0-8.0); NEUTROPHILS % 76.6 % (40.0-76.0); PLATELET 214 x1000/uL (130-400); RED BLOOD CELL COUNT 2.83 mill/uL (4.2-5.4); RED CELL DISTRIBUTION WIDTH 15.5 % (11.6-14.6)
[2018-08-26 08:59] LABS: PHOSPHORUS 7.1 mg/dL (2.5-4.9)
[2018-08-26] MEDS ORDERED: MEDICATION NOT ON FORMULARY EA (Difluprednate (Durezol) 1 DROP) LEFTEYE SCH (09:00)
[2018-08-26] MEDS: TIMOLOL MALEATE 0.5% OPHTH DROPS 5ML RIGHTEYE SCH ×2 (09:00→11:40)
[2018-08-26] MEDS ORDERED: BRIMONIDINE 0.2% OPHTH DROPS 5ML RIGHTEYE ONE (09:00)
[2018-08-26] MEDS ORDERED: MEDICATION NOT ON FORMULARY EA (Brinzolamide/Brimonid Tart (Simbrinza 1%-0.2% Eye Drops) RIGHTEYE SCH (09:00)
[2018-08-26] MEDS ORDERED: MEDICATION NOT ON FORMULARY EA (Timolol Maleate 1 DROP) RIGHTEYE SCH (09:00)
[2018-08-26] MEDS ORDERED: BROMFENAC SODIUM LEFTEYE SCH (09:00)
[2018-08-26] MEDS: METOPROLOL TARTRATE 25MG TABLET PO SCH ×2 (11:35→20:42)
[2018-08-26] MEDS: ASPIRIN 325MG EC TABLET PO SCH (11:35)
[2018-08-26] MEDS: CITRIC ACID/SODIUM CITRATE SOLN 30ML UDC PO SCH ×3 (11:35→18:57)
[2018-08-26] MEDS: FOLIC ACID/VITAMIN B COMP W-C TABLET PO SCH (11:35)
[2018-08-26] MEDS: DOCUSATE SODIUM 100MG CAPSULE PO PRN ×2 (11:35→18:57)
[2018-08-26] MEDS: PANTOPRAZOLE SODIUM 40 MG/VIAL IV SCH (11:35)
[2018-08-26] MEDS: FUROSEMIDE 40MG/4ML VIAL IVP SCH ×2 (11:35→20:38)
[2018-08-26] MEDS: ENOXAPARIN 40MG/0.4ML SYR SUBCUT SCH (11:38)
[2018-08-26] MEDS: CALCIUM ACETATE 667MG CAPSULE PO SCH ×2 (13:30→18:57)
[2018-08-26] MEDS: TRAMADOL 50MG TABLET PO PRN ×2 (15:03→20:42)
[2018-08-26] MEDS: LORAZEPAM 0.5MG TABLET PO PRN (22:26)
[2018-08-27] VITALS: BP 125/70
[2018-08-27 04:00] VITALS: BP 126/54
[2018-08-27] MEDS: MEROPENEM 500MG in NORMAL SALINE 50ML IV SCH ×2 (04:53→15:19)
[2018-08-27] MEDS: HYDRALAZINE HCL 50MG TABLET PO SCH ×3 (06:15→21:39)
[2018-08-27] MEDS: INSULIN LISPRO 100 UNITS/ML SUBCUT SCH ×4 (06:19→21:00)
[2018-08-27] MEDS: BLOOD SUGAR DIAGNOSTIC STRIP TEST SCH ×4 (06:19→21:36)
[2018-08-27 08:00] VITALS: BP 138/65
[2018-08-27 08:03] LABS: BASOPHILS % 0.4 % (0.0-2.0); EOSINOPHILS % 3.9 % (0.0-5.0); HEMATOCRIT. 25.8 % (36.0-48.0); HEMOGLOBIN. 8.6 g/dL (12.0-16.0); LYMPHOCYTES % 11.1 % (20.0-50.0); MEAN CORPUSCULAR HEMOGLOBIN 31.5 pg (28.0-32.0); MEAN CORPUSCULAR VOLUME 94.2 fL (81.0-99.0); MEAN PLATELET VOLUME 9.3 fl (7.4-10.4); MONOCYTES % 10.1 % (2.0-8.0); NEUTROPHILS % 74.5 % (40.0-76.0); PLATELET 203 x1000/uL (130-400); RED BLOOD CELL COUNT 2.74 mill/uL (4.2-5.4); RED CELL DISTRIBUTION WIDTH 15.5 % (11.6-14.6)
[2018-08-27 08:42] LABS: PHOSPHORUS 6.5 mg/dL (2.5-4.9)
[2018-08-27] MEDS: CITRIC ACID/SODIUM CITRATE SOLN 30ML UDC PO SCH ×3 (10:05→18:18)
[2018-08-27] MEDS: ASPIRIN 325MG EC TABLET PO SCH (10:06)
[2018-08-27] MEDS: CALCIUM ACETATE 667MG CAPSULE PO SCH ×3 (10:06→18:18)
[2018-08-27] MEDS: DOCUSATE SODIUM 100MG CAPSULE PO PRN (10:06)
[2018-08-27] MEDS: METOPROLOL TARTRATE 25MG TABLET PO SCH ×2 (10:06→20:40)
[2018-08-27] MEDS: FOLIC ACID/VITAMIN B COMP W-C TABLET PO SCH (10:06)
[2018-08-27] MEDS: PANTOPRAZOLE SODIUM 40 MG/VIAL IV SCH (10:06)
[2018-08-27] MEDS: FUROSEMIDE 40MG/4ML VIAL IVP SCH ×2 (10:07→20:38)
[2018-08-27] MEDS: TIMOLOL MALEATE 0.5% OPHTH DROPS 5ML RIGHTEYE SCH (10:10)
[2018-08-27] MEDS: ENOXAPARIN 40MG/0.4ML SYR SUBCUT SCH (11:35)
[2018-08-27 12:49] VITALS: BP_SYST 144; BP_SYST 155; BP_DIAS 64; BP_DIAS 67
[2018-08-27] MEDS: DIPHENHYDRAMINE 25MG CAPSULE PO PRN ×2 (15:21→23:11)
[2018-08-27 16:00] VITALS: BP 149/72
[2018-08-27 20:00] VITALS: BP 157/68
[2018-08-27] MEDS: TRAMADOL 50MG TABLET PO PRN (20:39)
[2018-08-27] MEDS: TRAVATAN Z 0.004% OP SCH (20:50)
[2018-08-28] VITALS: BP 118/46
[2018-08-28] MEDS: MEROPENEM 500MG in NORMAL SALINE 50ML IV SCH ×2 (02:38→16:04)
[2018-08-28 04:00] VITALS: BP 142/58
[2018-08-28] MEDS: INSULIN LISPRO 100 UNITS/ML SUBCUT SCH ×4 (06:27→21:37)
[2018-08-28] MEDS: BLOOD SUGAR DIAGNOSTIC STRIP TEST SCH ×4 (06:27→20:57)
[2018-08-28] MEDS: HYDRALAZINE HCL 50MG TABLET PO SCH ×3 (06:28→21:10)
[2018-08-28] MEDS: DIPHENHYDRAMINE 25MG CAPSULE PO PRN ×2 (06:38→16:08)
[2018-08-28 08:00] VITALS: BP 139/64
[2018-08-28] MEDS: CITRIC ACID/SODIUM CITRATE SOLN 30ML UDC PO SCH (08:48)
[2018-08-28] MEDS: CALCIUM ACETATE 667MG CAPSULE PO SCH ×3 (08:49→17:31)
[2018-08-28] MEDS: FUROSEMIDE 40MG/4ML VIAL IVP SCH ×2 (08:49→21:11)
[2018-08-28] MEDS: PANTOPRAZOLE SODIUM 40 MG/VIAL IV SCH (08:49)
[2018-08-28] MEDS: METOPROLOL TARTRATE 25MG TABLET PO SCH ×2 (08:50→21:09)
[2018-08-28] MEDS: FOLIC ACID/VITAMIN B COMP W-C TABLET PO SCH (08:50)
[2018-08-28] MEDS: ASPIRIN 325MG EC TABLET PO SCH (08:50)
[2018-08-28] MEDS: ENOXAPARIN 40MG/0.4ML SYR SUBCUT SCH (08:50)
[2018-08-28] MEDS: TIMOLOL MALEATE 0.5% OPHTH DROPS 5ML RIGHTEYE SCH (08:51)
[2018-08-28 09:57] LABS: BASOPHILS % 0.6 % (0.0-2.0); EOSINOPHILS % 3.6 % (0.0-5.0); HEMATOCRIT. 25.4 % (36.0-48.0); HEMOGLOBIN. 8.4 g/dL (12.0-16.0); LYMPHOCYTES % 14.1 % (20.0-50.0); MEAN CORPUSCULAR HEMOGLOBIN 31.1 pg (28.0-32.0); MEAN CORPUSCULAR VOLUME 94.7 fL (81.0-99.0); MEAN PLATELET VOLUME 9.5 fl (7.4-10.4); MONOCYTES % 10.1 % (2.0-8.0); NEUTROPHILS % 71.6 % (40.0-76.0); PLATELET 198 x1000/uL (130-400); RED BLOOD CELL COUNT 2.68 mill/uL (4.2-5.4); RED CELL DISTRIBUTION WIDTH 15.4 % (11.6-14.6)
[2018-08-28 10:08] LABS: PHOSPHORUS 5.6 mg/dL (2.5-4.9)
[2018-08-28 12:00] VITALS: BP 113/68
[2018-08-28] MEDS: TRAMADOL 50MG TABLET PO PRN ×2 (13:50→21:10)
[2018-08-28 16:00] VITALS: BP 157/69
[2018-08-28 20:00] VITALS: BP 157/57
[2018-08-28] MEDS: TRAVATAN Z 0.004% OP SCH (21:38)
[2018-08-29] VITALS: BP 107/53
[2018-08-29] MEDS: MEROPENEM 500MG in NORMAL SALINE 50ML IV SCH ×2 (03:28→14:35)
[2018-08-29] MEDS: DIPHENHYDRAMINE 25MG CAPSULE PO PRN ×2 (03:38→14:35)
[2018-08-29 04:00] VITALS: BP 149/79
[2018-08-29 05:33] LABS: BASOPHILS % 0.7 % (0.0-2.0); EOSINOPHILS % 3.5 % (0.0-5.0); HEMATOCRIT. 28.2 % (36.0-48.0); HEMOGLOBIN. 9.2 g/dL (12.0-16.0); LYMPHOCYTES % 11.2 % (20.0-50.0); MEAN CORPUSCULAR HEMOGLOBIN 31.2 pg (28.0-32.0); MEAN PLATELET VOLUME 9.4 fl (7.4-10.4); MONOCYTES % 10.3 % (2.0-8.0); NEUTROPHILS % 74.3 % (40.0-76.0); PLATELET 215 x1000/uL (130-400); RED BLOOD CELL COUNT 2.97 mill/uL (4.2-5.4); RED CELL DISTRIBUTION WIDTH 15.7 % (11.6-14.6)
[2018-08-29 05:35] LABS: PHOSPHORUS 5.4 mg/dL (2.5-4.9)
[2018-08-29] MEDS: BLOOD SUGAR DIAGNOSTIC STRIP TEST SCH ×4 (06:03→20:29)
[2018-08-29] MEDS: INSULIN LISPRO 100 UNITS/ML SUBCUT SCH ×4 (06:03→21:26)
[2018-08-29] MEDS: HYDRALAZINE HCL 50MG TABLET PO SCH ×3 (06:06→21:20)
[2018-08-29 08:00] VITALS: BP 133/53
[2018-08-29] MEDS: CALCIUM ACETATE 667MG CAPSULE PO SCH ×3 (08:12→17:44)
[2018-08-29] MEDS: FOLIC ACID/VITAMIN B COMP W-C TABLET PO SCH (08:12)
[2018-08-29] MEDS: METOPROLOL TARTRATE 25MG TABLET PO SCH ×2 (08:13→20:29)
[2018-08-29] MEDS: ASPIRIN 325MG EC TABLET PO SCH (08:13)
[2018-08-29] MEDS: TIMOLOL MALEATE 0.5% OPHTH DROPS 5ML RIGHTEYE SCH (08:14)
[2018-08-29] MEDS: PANTOPRAZOLE SODIUM 40 MG/VIAL IV SCH (08:14)
[2018-08-29] MEDS: ENOXAPARIN 40MG/0.4ML SYR SUBCUT SCH (08:14)
[2018-08-29] MEDS: FUROSEMIDE 40MG/4ML VIAL IVP SCH ×2 (08:14→20:28)
[2018-08-29 12:00] VITALS: BP_SYST 142; BP_SYST 153; BP_DIAS 54; BP_DIAS 59
[2018-08-29 16:00] VITALS: BP 156/69
[2018-08-29 20:00] VITALS: BP 153/69
[2018-08-29] MEDS: TRAMADOL 50MG TABLET PO PRN (20:29)
[2018-08-29] MEDS: TRAVATAN Z 0.004% OP SCH (21:20)
[2018-08-30] VITALS: BP 125/59
[2018-08-30] MEDS: DIPHENHYDRAMINE 25MG CAPSULE PO PRN ×2 (01:25→09:21)
[2018-08-30] MEDS: MEROPENEM 500MG in NORMAL SALINE 50ML IV SCH (02:49)
[2018-08-30 04:00] VITALS: BP 148/62
[2018-08-30 06:33] LABS: BASOPHILS % 0.6 % (0.0-2.0); EOSINOPHILS % 3.7 % (0.0-5.0); HEMATOCRIT. 26.7 % (36.0-48.0); HEMOGLOBIN. 8.9 g/dL (12.0-16.0); LYMPHOCYTES % 10.3 % (20.0-50.0); MEAN CORPUSCULAR HEMOGLOBIN 31.6 pg (28.0-32.0); MEAN CORPUSCULAR VOLUME 94.8 fL (81.0-99.0); MEAN PLATELET VOLUME 9.4 fl (7.4-10.4); MONOCYTES % 11.2 % (2.0-8.0); NEUTROPHILS % 74.2 % (40.0-76.0); PLATELET 206 x1000/uL (130-400); RED BLOOD CELL COUNT 2.81 mill/uL (4.2-5.4); RED CELL DISTRIBUTION WIDTH 15.1 % (11.6-14.6)
[2018-08-30] MEDS: CALCIUM ACETATE 667MG CAPSULE PO SCH ×2 (06:49→12:15)
[2018-08-30] MEDS: BLOOD SUGAR DIAGNOSTIC STRIP TEST SCH ×2 (06:49→11:45)
[2018-08-30] MEDS: HYDRALAZINE HCL 50MG TABLET PO SCH (06:49)
[2018-08-30] MEDS: INSULIN LISPRO 100 UNITS/ML SUBCUT SCH ×2 (07:00→12:15)
[2018-08-30 07:16] LABS: PHOSPHORUS 4.7 mg/dL (2.5-4.9)
[2018-08-30 08:00] VITALS: BP 152/68
[2018-08-30] MEDS: PANTOPRAZOLE SODIUM 40 MG/VIAL IV SCH (09:20)
[2018-08-30] MEDS: FOLIC ACID/VITAMIN B COMP W-C TABLET PO SCH (09:21)
[2018-08-30] MEDS: ENOXAPARIN 40MG/0.4ML SYR SUBCUT SCH (09:21)
[2018-08-30] MEDS: TIMOLOL MALEATE 0.5% OPHTH DROPS 5ML RIGHTEYE SCH (09:21)
[2018-08-30] MEDS: ASPIRIN 325MG EC TABLET PO SCH (09:22)
[2018-08-30] MEDS: METOPROLOL TARTRATE 25MG TABLET PO SCH (09:22)
[2018-08-30] MEDS: FUROSEMIDE 40MG/4ML VIAL IVP SCH (10:26)
[2018-08-30 12:00] VITALS: BP 141/63
[2018-08-30 12:17] VITALS: BP 145/68
== END 2018-08-30 12:45 | disposition home or self-care (01) | DRG 194 ==
LOC: ER 17:52 → 5WST 18:19 → ENRESERV 08-25 00:14
PROVIDERS: ADMIT Internal Medicine; ATTEND Internal Medicine
DX: I13.2 Hypertensive heart and chronic kidney disease with heart failure and with stage 5 chronic kidney disease, or end stage renal disease (principal); J96.01 Acute respiratory failure with hypoxia; N17.0 Acute kidney failure with tubular necrosis; E87.2 Acidosis; N39.0 Urinary tract infection, site not specified; I50.33 Acute on chronic diastolic (congestive) heart failure; D63.8 Anemia in other chronic diseases classified elsewhere; E11.22 Type 2 diabetes mellitus with diabetic chronic kidney disease; E11.42 Type 2 diabetes mellitus with diabetic polyneuropathy; E11.65 Type 2 diabetes mellitus with hyperglycemia; E78.00 Pure hypercholesterolemia, unspecified; E78.5 Hyperlipidemia, unspecified; L89.619 Pressure ulcer of right heel, unspecified stage; B96.1 Klebsiella pneumoniae [K. pneumoniae] as the cause of diseases classified elsewhere; E66.01 Morbid (severe) obesity due to excess calories; M19.90 Unspecified osteoarthritis, unspecified site; E83.51 Hypocalcemia; F19.10 Other psychoactive substance abuse, uncomplicated; F41.9 Anxiety disorder, unspecified; N18.5 Chronic kidney disease, stage 5; Z16.12 Extended spectrum beta lactamase (ESBL) resistance; Z79.4 Long term (current) use of insulin; Z82.49 Family history of ischemic heart disease and other diseases of the circulatory system; Z83.3 Family history of diabetes mellitus; Z86.73 Personal history of transient ischemic attack (TIA), and cerebral infarction without residual deficits; Z87.891 Personal history of nicotine dependence; Z88.0 Allergy status to penicillin; Z88.5 Allergy status to narcotic agent; Z79.82 Long term (current) use of aspirin; Z68.41 Body mass index [BMI] 40.0-44.9, adult; B96.29 Other Escherichia coli [E. coli] as the cause of diseases classified elsewhere; E83.39 Other disorders of phosphorus metabolism
CPT/HCPCS: 36415; 36600; 71045; 76770; 80048; 80061; 80305; 82270; 82375; 82550; 82553; 82728; 82805; 82962; 83036; 83540; 83550; 83735; 83880; 84100; 84484; 87077; 87186; 93005; 93970; 99285; C9113; J0885; J1650; J1815; J1940; J1956; J2185; J2405; J3490; J7050; Q0163

== ENCOUNTER 2018-08-30 19:52 | Emergency (ER) | payer MEDICARE, MEDICAID ==
[~2018-08-30] VITALS: Ht 172.7 cm; Wt 91.0 kg
[~2018-08-30 19:52] MED LIST changes: +ACET-2178 PO; -AMIO100T4 PO; +AMLO10TA80 PO; +BRIN8DRO RIGHTEYE; +BROM3DRO LEFTEYE; +DIFL5DRO LEFTEYE; -DORZ10DR9 EACHEYE; -FURO40TA5 PO; -LOSA50TA20 PO; -METO-385 PO; +METO25TA6 PO; -SITA25TA3 PO; +TIMO5DRO32 RIGHTEYE
[2018-08-30] MEDS ORDERED: LIDOCAINE HCL/EPINEPHRINE 1%-EPI 1:100,000 30 ML VIAL INFIL ONE (21:15)
[2018-08-30 23:59] VITALS: BP 138/80
== END 2018-08-31 00:02 | disposition home or self-care (01) ==
LOC: ER 19:52
DX: T82.838A Hemorrhage due to vascular prosthetic devices, implants and grafts, initial encounter (principal); Y82.8 Other medical devices associated with adverse incidents; Y92.098 Other place in other non-institutional residence as the place of occurrence of the external cause; Z88.0 Allergy status to penicillin; I12.9 Hypertensive chronic kidney disease with stage 1 through stage 4 chronic kidney disease, or unspecified chronic kidney disease; E11.22 Type 2 diabetes mellitus with diabetic chronic kidney disease; N18.9 Chronic kidney disease, unspecified; E78.00 Pure hypercholesterolemia, unspecified
CPT/HCPCS: 99283; 99284

== ENCOUNTER 2019-08-02 14:33 | Emergency (ER) | payer MEDICARE, MEDICAID ==
[~2019-08-02] VITALS: Ht 170.2 cm; Wt 109.0 kg
[~2019-08-02 14:33] MED LIST changes: -ACET-2178 PO; -ASPI-1159 PO; +ASPI-1393 PO; +TOPUD PO
[2019-08-02 14:51] VITALS: BP 136/66
== END 2019-08-02 19:00 | disposition left against medical advice (07) ==
LOC: ER 14:33
DX: Z53.21 Procedure and treatment not carried out due to patient leaving prior to being seen by health care provider (principal)
CPT/HCPCS: 82962

== ENCOUNTER 2022-12-25 07:56 | Inpatient (IN) | payer MEDICARE, MEDICAID ==
[~2022-12-25] VITALS: Ht 172.7 cm; Wt 95.7 kg
[~2022-12-25 07:56] MED LIST changes: -ASPI-1393 PO; +ASPI-1497 PO; -GABA-531 PO; +GABA-532 PO; +SIMV-43 PO; -SIMV20TA6 PO; -TRAV2.5D EACHEYE; +TRAV2.5D9 EACHEYE
[2022-12-25] MEDS ORDERED: SODIUM CHLORIDE 0.9% 1,000 ML IV ONE (08:15)
[2022-12-25] MEDS ORDERED: MEROPENEM 1,000 MG in SODIUM CHLORIDE 0.9% 100 ML IV SCH (08:15)
[2022-12-25] MEDS ORDERED: VANCOMYCIN 1G PREMIX 200 ML IV ONE (08:15)
[2022-12-25 08:49] LABS: HEMATOCRIT. 29.7 % (36.0-48.0); MEAN CORPUSCULAR HEMOGLOBIN 28.9 pg (28.0-32.0); MEAN CORPUSCULAR VOLUME 95.3 fL (81.0-99.0); MEAN PLATELET VOLUME 8.7 fl (7.4-10.4); PLATELET 257 x1000/uL (130-400); RED BLOOD CELL COUNT 3.12 mill/uL (4.2-5.4); RED CELL DISTRIBUTION WIDTH 22.6 % (11.6-14.6)
[2022-12-25 08:50] LABS: CHLORIDE 100 mEq/L (98-107)
[2022-12-25 09:02] LABS: D-DIMER 7.47 mg/L FEU (<0.50); INR 1.3; PROTHROMBIN TIME 13.4 sec (9.6-11.0)
[2022-12-25] MEDS ORDERED: SODIUM CHLORIDE 0.9% 1000ML BAG (SEPSIS BOLUS) IV ONE (09:15)
[2022-12-25] MEDS ORDERED: IOHEXOL-350 100 ML BOTTLE ONE (09:20)
[2022-12-25 11:36] LABS: CLARITY URINE CLOUDY (CLEAR); COLOR URINE DARK YELLOW (YELLOW); KETONES URINE TRACE (NEGATIVE); LEUKOCYTE ESTERASE URINE 2+ (NEGATIVE); NITRITE URINE NEGATIVE (NEGATIVE); OCCULT BLOOD URINE TRACE (NEGATIVE); PROTEIN URINE 1+ (NEGATIVE); SPECIFIC GRAVITY URINE 1.021 (1.005-1.030)
[2022-12-25 11:39] LABS: PLATELET ESTIMATE NORMAL
[2022-12-25] MEDS ORDERED: NOREPINEPHRINE 8MG/250ML PMX 250 ML IV STA (14:01)
[2022-12-25] MEDS ORDERED: NOREPINEPHRINE 8 MG in DEXTROSE 5% WATER 250 ML IV PRN (14:15)
[2022-12-25] MEDS ORDERED: IPRATROPIUM/ALBUTEROL 0.5-3(2.5)MG/3ML NEB HHN PRN (17:00)
[2022-12-25] MEDS ORDERED: ONDANSETRON HCL 4MG/2ML INJ IV PRN (17:00)
[2022-12-25] MEDS ORDERED: CLONIDINE 0.1MG TABLET PO PRN (17:00)
[2022-12-25] MEDS ORDERED: MEROPENEM-0.9% SODIUM CHLORIDE 50 ML IV SCH (18:00)
[2022-12-25] MEDS ORDERED: VANCOMYCIN 1G PREMIX 200 ML IV NR (18:00)
[2022-12-25 20:00] VITALS: BP 121/64
[2022-12-25] MEDS: DIPHENHYDRAMINE 50MG/ML VIAL IV PRN (21:28)
[2022-12-25] MEDS: HYDROMORPHONE HCL/PF 2MG/ML CPJ IV PRN (21:29)
[2022-12-25 23:00] VITALS: BP 89/51
[2022-12-25 23:30] VITALS: BP 105/56
[2022-12-25 23:45] VITALS: BP 106/50
[2022-12-26] VITALS (98 sets, daily range): BP systolic 83–171; BP diastolic 42–105
[2022-12-26] MEDS ORDERED: NOREPINEPHRINE 8MG/250ML PMX 250 ML IV PRN
[2022-12-26] MEDS: NOREPINEPHRINE 8 MG in DEXTROSE 5% WATER 250 ML IV PRN ×2 (03:25→12:49)
[2022-12-26] MEDS ORDERED: DEXTROSE 50% WATER 50ML SYRINGE IV PRN (05:30)
[2022-12-26 05:35] LABS: HEMATOCRIT. 26.2 % (36.0-48.0); HEMOGLOBIN. 7.5 g/dL (12.0-16.0); MEAN CORPUSCULAR HEMOGLOBIN 29.1 pg (28.0-32.0); MEAN CORPUSCULAR VOLUME 101.1 fL (81.0-99.0); MEAN PLATELET VOLUME 10.5 fl (7.4-10.4); PLATELET 149 x1000/uL (130-400); RED BLOOD CELL COUNT 2.59 mill/uL (4.2-5.4); RED CELL DISTRIBUTION WIDTH 23.4 % (11.6-14.6)
[2022-12-26 05:52] LABS: CHLORIDE 106 mEq/L (98-107)
[2022-12-26] MEDS: BLOOD SUGAR DIAGNOSTIC STRIP TEST SCH ×4 (06:29→21:51)
[2022-12-26] MEDS: INSULIN LISPRO 100 UNITS/ML SUBCUT SCH ×5 (06:32→21:35)
[2022-12-26 07:19] LABS: PLATELET ESTIMATE NORMAL
[2022-12-26] MEDS: MEROPENEM-0.9% SODIUM CHLORIDE 50 ML IV SCH (09:18)
[2022-12-26] MEDS ORDERED: NALOXONE HCL 0.4MG/ML VIAL IV PRN (12:00)
[2022-12-26] MEDS ORDERED: IOHEXOL-350 100 ML BOTTLE ONE (13:37)
[2022-12-26 15:16] LABS: HEPATITIS B SURFACE ANTIGEN NEGATIVE
[2022-12-26] MEDS: PANTOPRAZOLE 40MG DR TABLET PO SCH ×2 (16:55→21:33)
[2022-12-26] MEDS: HYDROMORPHONE HCL/PF 2MG/ML CPJ IV PRN (17:00)
[2022-12-26] MEDS ORDERED: NOREPINEPHRINE 32 MG in DEXT 5% WATER 218 ML IV PRN (17:00)
[2022-12-26] MEDS: ACETAMINOPHEN 325MG TABLET PO PRN (21:04)
[2022-12-26] MEDS: EPOETIN ALFA-EPBX 4,000 UNIT/ML VIAL SUBCUT SCH (21:33)
[2022-12-26] MEDS: PHENYLEPHRINE 100 MG in DEXT 5% WATER 240 ML IV PRN (23:29)
[2022-12-27] VITALS (60 sets, daily range): BP systolic 76–128; BP diastolic 30–85
[2022-12-27] MEDS: HYDROMORPHONE HCL/PF 2MG/ML CPJ IV PRN (04:32)
[2022-12-27 05:33] LABS: HEMATOCRIT. 25.5 % (36.0-48.0); HEMOGLOBIN. 8.2 g/dL (12.0-16.0); MEAN CORPUSCULAR VOLUME 93.4 fL (81.0-99.0); MEAN PLATELET VOLUME 9.1 fl (7.4-10.4); PLATELET 265 x1000/uL (130-400); RED BLOOD CELL COUNT 2.73 mill/uL (4.2-5.4); RED CELL DISTRIBUTION WIDTH 21.8 % (11.6-14.6)
[2022-12-27 05:45] LABS: CHLORIDE 103 mEq/L (98-107)
[2022-12-27 06:05] LABS: PHOSPHORUS 4.2 mg/dL (2.5-4.9)
[2022-12-27] MEDS: PANTOPRAZOLE 40MG DR TABLET PO SCH ×2 (06:35→20:31)
[2022-12-27] MEDS: INSULIN LISPRO 100 UNITS/ML SUBCUT SCH ×4 (06:36→20:47)
[2022-12-27] MEDS: BLOOD SUGAR DIAGNOSTIC STRIP TEST SCH ×4 (06:39→20:42)
[2022-12-27] MEDS: MEROPENEM-0.9% SODIUM CHLORIDE 50 ML IV SCH (09:00)
[2022-12-27 10:19] LABS: PLATELET ESTIMATE NORMAL
[2022-12-27] MEDS ORDERED: CEFTRIAXONE 2GM/50ML (ADDEASE) 50 ML IV SCH (11:30)
[2022-12-27] MEDS ORDERED: HEPARIN BOLUS PRN aPTT 37-44 IV (13:00)
[2022-12-27] MEDS ORDERED: HEPARIN 80 UNITS/KG BOLUS IV SCH (13:00)
[2022-12-27] MEDS ORDERED: HEPARIN BOLUS PRN aPTT <36 IV (13:00)
[2022-12-27 13:04] LABS: TOTAL IRON BINDING CAPACITY 142 ug/dL (250-450)
[2022-12-27 13:30] LABS: VITAMIN B12 SERUM 300 pg/mL (211-911)
[2022-12-27] MEDS: MIDODRINE HCL 5MG TABLET PO SCH ×2 (13:30→17:00)
[2022-12-27] MEDS: PHENYLEPHRINE 100 MG in DEXT 5% WATER 240 ML IV PRN ×2 (14:43→22:47)
[2022-12-27] MEDS: HEPARIN 25,000 UNITS PREMIX 250 ML IV SCH (15:39)
[2022-12-27 20:53] LABS: HEMATOCRIT 28.5 % (36.0-48.0); HEMOGLOBIN 8.2 g/dL (12.0-16.0); MEAN CORPUSCULAR HEMOGLOBIN 28.8 pg (28.0-32.0); PLATELET 241 x1000/uL (130-400); RED BLOOD CELL COUNT 2.84 mill/uL (4.2-5.4); RED CELL DISTRIBUTION WIDTH 22.7 % (11.6-14.6)
[2022-12-28] VITALS (87 sets, daily range): BP systolic 71–131; BP diastolic 33–85
[2022-12-28 00:42] LABS: *AMPHETAMINES SCREEN URINE NEGATIVE (NEGATIVE); *BARBITURATES SCREEN URINE NEGATIVE (NEGATIVE); *BENZODIAZEPINES SCREEN URINE NEGATIVE (NEGATIVE); *COCAINE SCREEN URINE NEGATIVE (NEGATIVE); CANNABINOID URINE SCREEN NEGATIVE (NEGATIVE); METHADONE URINE SCREEN NEGATIVE (NEGATIVE); OPIATES URINE SCREEN PRESUMTIVE POSITIVE (NEGATIVE); PHENCYCLIDINE URINE SCREEN NEGATIVE (NEGATIVE)
[2022-12-28] MEDS: HYDROMORPHONE HCL/PF 2MG/ML CPJ IV PRN ×3 (02:26→22:10)
[2022-12-28 04:50] LABS: BASOPHILS % 0.6 % (0.0-2.0); EOSINOPHILS % 1.5 % (0.0-5.0); HEMATOCRIT. 23.8 % (36.0-48.0); HEMOGLOBIN. 7.5 g/dL (12.0-16.0); MEAN CORPUSCULAR HEMOGLOBIN 29.8 pg (28.0-32.0); MEAN CORPUSCULAR VOLUME 94.1 fL (81.0-99.0); MEAN PLATELET VOLUME 8.3 fl (7.4-10.4); MONOCYTES % 3.9 % (2.0-8.0); PLATELET 231 x1000/uL (130-400); RED BLOOD CELL COUNT 2.53 mill/uL (4.2-5.4); RED CELL DISTRIBUTION WIDTH 22.3 % (11.6-14.6)
[2022-12-28] MEDS: PANTOPRAZOLE 40MG DR TABLET PO SCH ×3 (06:01→21:00)
[2022-12-28] MEDS: BLOOD SUGAR DIAGNOSTIC STRIP TEST SCH ×4 (06:01→20:56)
[2022-12-28] MEDS: PHENYLEPHRINE 100 MG in DEXT 5% WATER 240 ML IV PRN ×3 (06:01→22:10)
[2022-12-28 06:02] LABS: PHOSPHORUS 4.8 mg/dL (2.5-4.9)
[2022-12-28] MEDS: INSULIN LISPRO 100 UNITS/ML SUBCUT SCH ×4 (06:17→20:46)
[2022-12-28] MEDS: HEPARIN 25,000 UNITS PREMIX 250 ML IV SCH (06:47)
[2022-12-28] MEDS: CEFTRIAXONE 2 G in DEXTROSE 5% WATER 50 ML IV SCH (09:20)
[2022-12-28] MEDS: MIDODRINE HCL 5MG TABLET PO SCH ×3 (09:20→18:36)
[2022-12-28 12:25] LABS: PLATELET ESTIMATE NORMAL
[2022-12-28] MEDS: EPOETIN ALFA-EPBX 4,000 UNIT/ML VIAL SUBCUT SCH (21:25)
[2022-12-29] VITALS (97 sets, daily range): BP systolic 87–187; BP diastolic 48–152
[2022-12-29] MEDS: HEPARIN 25,000 UNITS PREMIX 250 ML IV SCH ×2 (04:09→09:20)
[2022-12-29] MEDS: HYDROMORPHONE HCL/PF 2MG/ML CPJ IV PRN ×3 (04:10→21:48)
[2022-12-29] MEDS: PANTOPRAZOLE 40MG DR TABLET PO SCH ×2 (05:30→21:10)
[2022-12-29] MEDS: BLOOD SUGAR DIAGNOSTIC STRIP TEST SCH ×4 (05:56→21:12)
[2022-12-29 06:30] LABS: BASOPHILS % 0.7 % (0.0-2.0); EOSINOPHILS % 2.6 % (0.0-5.0); HEMATOCRIT. 24.2 % (36.0-48.0); HEMOGLOBIN. 7.5 g/dL (12.0-16.0); LYMPHOCYTES % 8.6 % (20.0-50.0); MEAN CORPUSCULAR HEMOGLOBIN 29.8 pg (28.0-32.0); MEAN CORPUSCULAR VOLUME 95.8 fL (81.0-99.0); MEAN PLATELET VOLUME 8.3 fl (7.4-10.4); MONOCYTES % 4.3 % (2.0-8.0); NEUTROPHILS % 83.8 % (40.0-76.0); PLATELET 202 x1000/uL (130-400); RED BLOOD CELL COUNT 2.53 mill/uL (4.2-5.4); RED CELL DISTRIBUTION WIDTH 22.1 % (11.6-14.6)
[2022-12-29 06:43] LABS: CHLORIDE 101 mEq/L (98-107)
[2022-12-29 06:49] LABS: PHOSPHORUS 4.3 mg/dL (2.5-4.9)
[2022-12-29] MEDS: INSULIN LISPRO 100 UNITS/ML SUBCUT SCH ×4 (07:05→21:21)
[2022-12-29] MEDS: MIDODRINE HCL 5MG TABLET PO SCH ×3 (09:04→21:11)
[2022-12-29] MEDS: CEFTRIAXONE 2 G in DEXTROSE 5% WATER 50 ML IV SCH (09:04)
[2022-12-29] MEDS: PHENYLEPHRINE 100 MG in DEXT 5% WATER 240 ML IV PRN (11:59)
[2022-12-30] VITALS (97 sets, daily range): BP systolic 80–132; BP diastolic 42–86
[2022-12-30] MEDS: HEPARIN 25,000 UNITS PREMIX 250 ML IV SCH ×2 (00:56→22:47)
[2022-12-30] MEDS: HYDROMORPHONE HCL/PF 2MG/ML CPJ IV PRN (03:28)
[2022-12-30] MEDS: PANTOPRAZOLE 40MG DR TABLET PO SCH ×2 (05:31→20:05)
[2022-12-30] MEDS: INSULIN LISPRO 100 UNITS/ML SUBCUT SCH ×4 (05:32→20:27)
[2022-12-30] MEDS: BLOOD SUGAR DIAGNOSTIC STRIP TEST SCH ×4 (05:32→20:27)
[2022-12-30] MEDS: MIDODRINE HCL 5MG TABLET PO SCH ×3 (05:32→20:05)
[2022-12-30 05:49] LABS: BASOPHILS % 0.3 % (0.0-2.0); EOSINOPHILS % 2.1 % (0.0-5.0); HEMATOCRIT. 26.5 % (36.0-48.0); HEMOGLOBIN. 8.1 g/dL (12.0-16.0); LYMPHOCYTES % 7.5 % (20.0-50.0); MEAN CORPUSCULAR VOLUME 97.7 fL (81.0-99.0); MEAN PLATELET VOLUME 9.3 fl (7.4-10.4); MONOCYTES % 3.9 % (2.0-8.0); NEUTROPHILS % 86.2 % (40.0-76.0); PLATELET 213 x1000/uL (130-400); RED BLOOD CELL COUNT 2.72 mill/uL (4.2-5.4)
[2022-12-30] MEDS: CEFTRIAXONE 2 G in DEXTROSE 5% WATER 50 ML IV SCH (08:29)
[2022-12-30] MEDS: PHENYLEPHRINE 100 MG in DEXT 5% WATER 240 ML IV PRN (08:30)
[2022-12-30] MEDS ORDERED: VANCOMYCIN 750MG PREMIX 150 ML IV NR (21:00)
[2022-12-30] MEDS: ACETAMINOPHEN 325MG TABLET PO PRN (23:00)
[2022-12-31] VITALS (100 sets, daily range): BP systolic 74–161; BP diastolic 39–98
[2022-12-31] MEDS: PANTOPRAZOLE 40MG DR TABLET PO SCH ×2 (05:47→21:43)
[2022-12-31] MEDS: MIDODRINE HCL 5MG TABLET PO SCH ×4 (05:48→21:44)
[2022-12-31] MEDS: INSULIN LISPRO 100 UNITS/ML SUBCUT SCH ×4 (05:59→21:00)
[2022-12-31 06:44] LABS: HEMATOCRIT. 24.3 % (36.0-48.0); HEMOGLOBIN. 7.6 g/dL (12.0-16.0); MEAN CORPUSCULAR HEMOGLOBIN 30.1 pg (28.0-32.0); MEAN CORPUSCULAR VOLUME 95.6 fL (81.0-99.0); MEAN PLATELET VOLUME 8.7 fl (7.4-10.4); PLATELET 210 x1000/uL (130-400); RED BLOOD CELL COUNT 2.54 mill/uL (4.2-5.4); RED CELL DISTRIBUTION WIDTH 21.7 % (11.6-14.6)
[2022-12-31] MEDS: BLOOD SUGAR DIAGNOSTIC STRIP TEST SCH ×4 (06:52→21:00)
[2022-12-31 07:05] LABS: PHOSPHORUS 5.3 mg/dL (2.5-4.9)
[2022-12-31] MEDS: CEFTRIAXONE 2 G in DEXTROSE 5% WATER 50 ML IV SCH (08:54)
[2022-12-31 09:30] LABS: PLATELET ESTIMATE NORMAL
[2022-12-31] MEDS ORDERED: POTASSIUM CHLORIDE 20MEQ/PACKET PO NR (09:30)
[2022-12-31] MEDS: DIPHENHYDRAMINE 50MG/ML VIAL IV PRN (14:01)
[2022-12-31] MEDS ORDERED: DIGOXIN 500MCG/2ML AMP IV NR ×2 (15:00→18:00)
[2022-12-31] MEDS ORDERED: DIGOXIN 500MCG/2ML AMP IV ONE (18:00)
[2022-12-31] MEDS: HEPARIN 25,000 UNITS PREMIX 250 ML IV SCH (19:25)
[2022-12-31] MEDS: EPOETIN ALFA-EPBX 4,000 UNIT/ML VIAL SUBCUT SCH (21:44)
[2022-12-31] MEDS: HYDROMORPHONE HCL/PF 2MG/ML CPJ IV PRN (23:09)
[2023-01-01] VITALS (95 sets, daily range): BP systolic 79–143; BP diastolic 40–79
[2023-01-01] MEDS: MIDODRINE HCL 5MG TABLET PO SCH ×3 (05:48→21:28)
[2023-01-01] MEDS: PANTOPRAZOLE 40MG DR TABLET PO SCH ×2 (05:48→21:28)
[2023-01-01 05:51] LABS: BASOPHILS % 0.3 % (0.0-2.0); EOSINOPHILS % 1.3 % (0.0-5.0); HEMATOCRIT. 25.6 % (36.0-48.0); HEMOGLOBIN. 7.8 g/dL (12.0-16.0); LYMPHOCYTES % 10.4 % (20.0-50.0); MEAN CORPUSCULAR HEMOGLOBIN 30.2 pg (28.0-32.0); MEAN PLATELET VOLUME 9.6 fl (7.4-10.4); MONOCYTES % 7.1 % (2.0-8.0); NEUTROPHILS % 80.9 % (40.0-76.0); PLATELET 215 x1000/uL (130-400); RED BLOOD CELL COUNT 2.59 mill/uL (4.2-5.4); RED CELL DISTRIBUTION WIDTH 22.6 % (11.6-14.6)
[2023-01-01] MEDS: BLOOD SUGAR DIAGNOSTIC STRIP TEST SCH ×4 (06:17→21:18)
[2023-01-01 06:39] LABS: DIGOXIN 1.6 ng/mL (0.9-2.0); PHOSPHORUS 5.2 mg/dL (2.5-4.9)
[2023-01-01] MEDS: INSULIN LISPRO 100 UNITS/ML SUBCUT SCH ×4 (07:00→21:20)
[2023-01-01] MEDS: CEFTRIAXONE 2 G in DEXTROSE 5% WATER 50 ML IV SCH (08:26)
[2023-01-01] MEDS: HYDROMORPHONE HCL/PF 2MG/ML CPJ IV PRN ×2 (10:27→16:57)
[2023-01-01] MEDS: PHENYLEPHRINE 100 MG in DEXT 5% WATER 240 ML IV PRN (13:11)
[2023-01-01] MEDS: HEPARIN 25,000 UNITS PREMIX 250 ML IV SCH (13:13)
[2023-01-02] VITALS (101 sets, daily range): BP systolic 79–147; BP diastolic 38–111
[2023-01-02] MEDS: MIDODRINE HCL 5MG TABLET PO SCH ×3 (05:00→20:05)
[2023-01-02 05:45] LABS: BASOPHILS % 0.7 % (0.0-2.0); HEMATOCRIT. 30.1 % (36.0-48.0); HEMOGLOBIN. 8.9 g/dL (12.0-16.0); LYMPHOCYTES % 14.9 % (20.0-50.0); MEAN CORPUSCULAR VOLUME 101.4 fL (81.0-99.0); MEAN PLATELET VOLUME 9.7 fl (7.4-10.4); MONOCYTES % 5.7 % (2.0-8.0); NEUTROPHILS % 76.7 % (40.0-76.0); PLATELET 219 x1000/uL (130-400); RED BLOOD CELL COUNT 2.97 mill/uL (4.2-5.4); RED CELL DISTRIBUTION WIDTH 22.9 % (11.6-14.6)
[2023-01-02] MEDS: BLOOD SUGAR DIAGNOSTIC STRIP TEST SCH ×4 (06:07→21:44)
[2023-01-02 06:10] LABS: PHOSPHORUS 6.3 mg/dL (2.5-4.9)
[2023-01-02] MEDS: PANTOPRAZOLE 40MG DR TABLET PO SCH ×2 (06:30→20:04)
[2023-01-02] MEDS: INSULIN LISPRO 100 UNITS/ML SUBCUT SCH ×4 (07:00→21:48)
[2023-01-02] MEDS: HEPARIN 25,000 UNITS PREMIX 250 ML IV SCH (08:05)
[2023-01-02] MEDS: CEFTRIAXONE 2 G in DEXTROSE 5% WATER 50 ML IV SCH (08:16)
[2023-01-02] MEDS: PHENYLEPHRINE 100 MG in DEXT 5% WATER 240 ML IV PRN (09:17)
[2023-01-02] MEDS ORDERED: ALTEPLASE 2MG/VIAL INJ NR (09:30)
[2023-01-02] MEDS: SODIUM HYPOCHLORITE 0.125% 473ML SOLUTION TOP SCH (12:27)
[2023-01-02] MEDS: HYDROMORPHONE HCL/PF 2MG/ML CPJ IV PRN (21:46)
[2023-01-03] VITALS (49 sets, daily range): BP systolic 92–134; BP diastolic 42–72
[2023-01-03] MEDS: HEPARIN 25,000 UNITS PREMIX 250 ML IV SCH (02:50)
[2023-01-03 05:12] LABS: HEMATOCRIT. 23.1 % (36.0-48.0); HEMOGLOBIN. 7.1 g/dL (12.0-16.0); MEAN CORPUSCULAR HEMOGLOBIN 30.4 pg (28.0-32.0); MEAN CORPUSCULAR VOLUME 98.2 fL (81.0-99.0); MEAN PLATELET VOLUME 8.5 fl (7.4-10.4); PLATELET 174 x1000/uL (130-400); RED BLOOD CELL COUNT 2.35 mill/uL (4.2-5.4); RED CELL DISTRIBUTION WIDTH 23.1 % (11.6-14.6)
[2023-01-03] MEDS: BLOOD SUGAR DIAGNOSTIC STRIP TEST SCH ×4 (06:40→21:00)
[2023-01-03] MEDS: INSULIN LISPRO 100 UNITS/ML SUBCUT SCH ×4 (06:40→21:50)
[2023-01-03] MEDS: MIDODRINE HCL 5MG TABLET PO SCH ×3 (06:46→21:29)
[2023-01-03] MEDS: PANTOPRAZOLE 40MG DR TABLET PO SCH ×2 (06:46→21:28)
[2023-01-03 07:58] LABS: NUCLEATED RED BLOOD CELLS 1 /100 WBC; PLATELET ESTIMATE NORMAL
[2023-01-03] MEDS: SODIUM HYPOCHLORITE 0.125% 473ML SOLUTION TOP SCH (08:17)
[2023-01-03] MEDS: CEFTRIAXONE 2 G in DEXTROSE 5% WATER 50 ML IV SCH (08:17)
[2023-01-03] MEDS ORDERED: POTASSIUM CHLORIDE INJ 40 MEQ in DEXT 5% WATER 250 ML IV ONE (09:00)
[2023-01-03] MEDS ORDERED: VANCOMYCIN HCL 1 GM/VIAL ONE ×2 (10:25→11:44)
[2023-01-03] MEDS ORDERED: POLYMYXIN B SULFATE 500000 UNITS/VIAL ONE ×2 (10:25→11:44)
[2023-01-03] MEDS ORDERED: LIDOCAINE HCL 1% 10 MG/ML 10ML VIAL ONE ×2 (10:26→11:45)
[2023-01-03] MEDS ORDERED: BUPIVACAINE HCL/PF 0.5% (5MG/ML) 10ML ONE ×2 (10:26→11:45)
[2023-01-03] MEDS ORDERED: IODIXANOL 320MG/ML 100 ML BOTTLE IV ONE (10:34)
[2023-01-03] MEDS ORDERED: FENTANYL CITRATE/PF 50MCG/ML 2ML VIAL ONE (11:45)
[2023-01-03] MEDS ORDERED: MIDAZOLAM HCL 2 MG/2 ML VIAL ONE (11:45)
[2023-01-03] MEDS ORDERED: LIDOCAINE HCL 1% 20ML VIAL (Pyxis) INJ ONE (11:45)
[2023-01-03] MEDS ORDERED: HEPARIN 1000 UNITS/ML 10ML ONE (11:57)
[2023-01-03] MEDS: KCL 20MEQ/100ML X 2 FOR TOTAL KCL 40MEQ/200ML IV SCH ×2 (13:20→13:27)
[2023-01-03 16:36] LABS: HEMOGLOBIN 8.8 g/dL (12.0-16.0)
[2023-01-03] MEDS: CALCIUM ACETATE 667MG CAPSULE PO SCH (17:45)
[2023-01-03] MEDS: EPOETIN ALFA-EPBX 4,000 UNIT/ML VIAL SUBCUT SCH (21:29)
[2023-01-04] VITALS (29 sets, daily range): BP systolic 89–152; BP diastolic 40–93
[2023-01-04 05:24] LABS: BASOPHILS % 0.5 % (0.0-2.0); EOSINOPHILS % 0.9 % (0.0-5.0); HEMATOCRIT. 27.3 % (36.0-48.0); HEMOGLOBIN. 8.7 g/dL (12.0-16.0); LYMPHOCYTES % 11.4 % (20.0-50.0); MEAN CORPUSCULAR HEMOGLOBIN 30.2 pg (28.0-32.0); MEAN CORPUSCULAR VOLUME 94.9 fL (81.0-99.0); MEAN PLATELET VOLUME 8.7 fl (7.4-10.4); MONOCYTES % 9.2 % (2.0-8.0); PLATELET 184 x1000/uL (130-400); RED BLOOD CELL COUNT 2.87 mill/uL (4.2-5.4); RED CELL DISTRIBUTION WIDTH 26.7 % (11.6-14.6)
[2023-01-04] MEDS: BLOOD SUGAR DIAGNOSTIC STRIP TEST SCH ×4 (06:30→20:42)
[2023-01-04] MEDS: MIDODRINE HCL 5MG TABLET PO SCH ×3 (06:38→20:42)
[2023-01-04] MEDS: PANTOPRAZOLE 40MG DR TABLET PO SCH ×2 (06:38→20:42)
[2023-01-04] MEDS: INSULIN LISPRO 100 UNITS/ML SUBCUT SCH ×4 (06:40→20:42)
[2023-01-04] MEDS: CALCIUM ACETATE 667MG CAPSULE PO SCH ×3 (08:50→16:22)
[2023-01-04] MEDS: SODIUM HYPOCHLORITE 0.125% 473ML SOLUTION TOP SCH (08:51)
[2023-01-04] MEDS: CEFTRIAXONE 2GM DUPLEX 50 ML IV SCH (08:51)
[2023-01-04] MEDS: HYDROMORPHONE HCL/PF 2MG/ML CPJ IV PRN (16:23)
[2023-01-05] VITALS (12 sets, daily range): BP systolic 84–157; BP diastolic 46–70
[2023-01-05] MEDS: HYDROMORPHONE HCL/PF 2MG/ML CPJ IV PRN ×3 (02:44→20:15)
[2023-01-05] MEDS: MIDODRINE HCL 5MG TABLET PO SCH ×4 (05:09→21:06)
[2023-01-05 06:13] LABS: BASOPHILS % 0.4 % (0.0-2.0); EOSINOPHILS % 2.1 % (0.0-5.0); HEMATOCRIT. 27.8 % (36.0-48.0); HEMOGLOBIN. 8.5 g/dL (12.0-16.0); LYMPHOCYTES % 10.1 % (20.0-50.0); MEAN CORPUSCULAR VOLUME 98.4 fL (81.0-99.0); MEAN PLATELET VOLUME 8.5 fl (7.4-10.4); MONOCYTES % 8.6 % (2.0-8.0); NEUTROPHILS % 78.8 % (40.0-76.0); PLATELET 136 x1000/uL (130-400); RED BLOOD CELL COUNT 2.83 mill/uL (4.2-5.4); RED CELL DISTRIBUTION WIDTH 27.7 % (11.6-14.6)
[2023-01-05] MEDS: BLOOD SUGAR DIAGNOSTIC STRIP TEST SCH ×4 (06:36→21:06)
[2023-01-05] MEDS: INSULIN LISPRO 100 UNITS/ML SUBCUT SCH ×4 (06:36→21:00)
[2023-01-05] MEDS: PANTOPRAZOLE 40MG DR TABLET PO SCH ×2 (06:37→21:06)
[2023-01-05] MEDS: LACTOBACILLUS GG CAPSULE PO SCH (09:24)
[2023-01-05] MEDS: CALCIUM ACETATE 667MG CAPSULE PO SCH ×3 (09:24→16:11)
[2023-01-05] MEDS: CEFTRIAXONE 2GM DUPLEX 50 ML IV SCH (09:25)
[2023-01-05] MEDS: SODIUM HYPOCHLORITE 0.125% 473ML SOLUTION TOP SCH (10:20)
[2023-01-05] MEDS ORDERED: POTASSIUM CHLORIDE INJ 40 MEQ in DEXT 5% WATER 250 ML IV NR (10:30)
[2023-01-05] MEDS: ACETAMINOPHEN 325MG TABLET PO PRN (16:16)
[2023-01-06] VITALS (10 sets, daily range): BP systolic 83–145; BP diastolic 37–62
[2023-01-06] MEDS: HYDROMORPHONE HCL/PF 2MG/ML CPJ IV PRN (03:55)
[2023-01-06] MEDS: PANTOPRAZOLE 40MG DR TABLET PO SCH ×2 (06:09→22:36)
[2023-01-06] MEDS: BLOOD SUGAR DIAGNOSTIC STRIP TEST SCH ×4 (06:10→21:00)
[2023-01-06] MEDS: INSULIN LISPRO 100 UNITS/ML SUBCUT SCH ×4 (06:10→21:00)
[2023-01-06] MEDS: MIDODRINE HCL 5MG TABLET PO SCH ×3 (06:10→22:35)
[2023-01-06 06:27] LABS: BASOPHILS % 0.5 % (0.0-2.0); EOSINOPHILS % 2.1 % (0.0-5.0); HEMATOCRIT. 31.2 % (36.0-48.0); HEMOGLOBIN. 9.5 g/dL (12.0-16.0); LYMPHOCYTES % 13.3 % (20.0-50.0); MEAN CORPUSCULAR HEMOGLOBIN 29.8 pg (28.0-32.0); MEAN CORPUSCULAR VOLUME 97.7 fL (81.0-99.0); MEAN PLATELET VOLUME 8.6 fl (7.4-10.4); MONOCYTES % 9.2 % (2.0-8.0); NEUTROPHILS % 74.9 % (40.0-76.0); PLATELET 175 x1000/uL (130-400); RED BLOOD CELL COUNT 3.19 mill/uL (4.2-5.4); RED CELL DISTRIBUTION WIDTH 28.3 % (11.6-14.6)
[2023-01-06 08:59] LABS: BG BASE EXCESS -2.8 mmol/L (-2.0-2.0); BG CARBOXYHEMOGLOBIN 1.5 % (0.5-1.5); BG DEOXYHEMOGLOBIN 2.2 % (0.0-5.0); BG HCO3 ACT 20.4 mmol/L (22.0-26.0); BG METHEMOGLOBIN 0.3 % (0.0-1.5); BG OXYGEN SATURATION 97.8 % (92.0-98.5); BG PCO2 29.8 mmHg (35.0-45.0); BG PH 7.454 (7.350-7.450); BG PO2 99.1 mmHg (75.0-100.0); BG SAMPLE SITE RIGHT BRACHIAL; BG TOTAL HEMOGLOBIN 9.2 g/dL (12.0-18.0); BG TOTAL RESPIRATORY RATE 18 b/min; BG VENT MODE ROOM AIR
[2023-01-06] MEDS ORDERED: HYDROCODONE/ACETAMINOPHEN 5/325MG TABLET PO PRN (09:45)
[2023-01-06] MEDS: CALCIUM ACETATE 667MG CAPSULE PO SCH (10:19)
[2023-01-06] MEDS: LACTOBACILLUS GG CAPSULE PO SCH (10:19)
[2023-01-06] MEDS: CEFTRIAXONE 2GM DUPLEX 50 ML IV SCH (10:32)
[2023-01-06] MEDS: SODIUM HYPOCHLORITE 0.125% 473ML SOLUTION TOP SCH (10:32)
[2023-01-06 10:35] LABS: PLATELET ESTIMATE NORMAL
[2023-01-06] MEDS: HYDROCODONE/ACETAMINOPHEN 10/325MG TABLET PO PRN (11:00)
[2023-01-06] MEDS ORDERED: ENOXAPARIN 40MG/0.4ML SYR SUBCUT SCH (12:00)
[2023-01-06] MEDS: BRIMONIDINE 0.2% OPHTH DROPS 5ML BOTHEYE SCH ×2 (14:00→22:00)
[2023-01-06] MEDS ORDERED: ENOXAPARIN 60MG/0.6ML SYR SUBCUT NR (18:15)
[2023-01-06] MEDS: LATANOPROST 0.005% OPHTH DROPS 2.5ML BOTHEYE SCH (21:00)
[2023-01-06] MEDS: EPOETIN ALFA-EPBX 4,000 UNIT/ML VIAL SUBCUT SCH (22:34)
[2023-01-07 01:31] LABS: INR 1.2; PROTHROMBIN TIME 12.7 sec (9.6-11.0)
[2023-01-07] MEDS: MIDODRINE HCL 5MG TABLET PO SCH ×3 (05:00→22:49)
[2023-01-07] MEDS: BRIMONIDINE 0.2% OPHTH DROPS 5ML BOTHEYE SCH ×3 (06:00→22:50)
[2023-01-07 06:45] LABS: BASOPHILS % 0.4 % (0.0-2.0); HEMATOCRIT. 27.3 % (36.0-48.0); HEMOGLOBIN. 8.2 g/dL (12.0-16.0); LYMPHOCYTES % 8.9 % (20.0-50.0); MEAN CORPUSCULAR HEMOGLOBIN 29.6 pg (28.0-32.0); MEAN CORPUSCULAR VOLUME 98.4 fL (81.0-99.0); MEAN PLATELET VOLUME 8.3 fl (7.4-10.4); MONOCYTES % 9.7 % (2.0-8.0); PLATELET 175 x1000/uL (130-400); RED BLOOD CELL COUNT 2.77 mill/uL (4.2-5.4); RED CELL DISTRIBUTION WIDTH 27.5 % (11.6-14.6)
[2023-01-07] MEDS: BLOOD SUGAR DIAGNOSTIC STRIP TEST SCH ×3 (07:20→21:00)
[2023-01-07 07:21] LABS: PHOSPHORUS 3.6 mg/dL (2.5-4.9)
[2023-01-07] MEDS: INSULIN LISPRO 100 UNITS/ML SUBCUT SCH ×3 (07:50→21:00)
[2023-01-07] MEDS ORDERED: POTASSIUM CHLORIDE 20MEQ/PACKET PO NR (08:00)
[2023-01-07] MEDS: TIMOLOL MALEATE 0.5% OPHTH DROPS 5ML EACHEYE SCH ×2 (09:00→10:45)
[2023-01-07] MEDS: CALCIUM ACETATE 667MG CAPSULE PO SCH ×2 (09:00→17:00)
[2023-01-07] MEDS ORDERED: MIDO5TAB4 PO (09:32)
[2023-01-07] MEDS ORDERED: PANT40TA51 PO (09:32)
[2023-01-07] MEDS ORDERED: CALC667C PO (09:32)
[2023-01-07] MEDS: CEFTRIAXONE 2GM DUPLEX 50 ML IV SCH (10:54)
[2023-01-07] MEDS: LACTOBACILLUS GG CAPSULE PO SCH (10:55)
[2023-01-07] MEDS: PANTOPRAZOLE 40MG DR TABLET PO SCH ×2 (10:55→22:49)
[2023-01-07] MEDS ORDERED: ALTEPLASE 2MG/VIAL ITC NR (17:45)
[2023-01-07 17:59] VITALS: BP 126/64
[2023-01-07] MEDS: ENOXAPARIN 100MG/ML SYR SUBCUT SCH (18:00)
[2023-01-07 18:08] VITALS: BP 119/56
[2023-01-07] MEDS: HYDROCODONE/ACETAMINOPHEN 10/325MG TABLET PO PRN (22:48)
[2023-01-07] MEDS: LATANOPROST 0.005% OPHTH DROPS 2.5ML BOTHEYE SCH (22:50)
[2023-01-08] VITALS (8 sets, daily range): BP systolic 112–142; BP diastolic 46–71
[2023-01-08] MEDS: BRIMONIDINE 0.2% OPHTH DROPS 5ML BOTHEYE SCH ×3 (06:00→22:59)
[2023-01-08] MEDS: BLOOD SUGAR DIAGNOSTIC STRIP TEST SCH ×4 (07:20→21:00)
[2023-01-08] MEDS: INSULIN LISPRO 100 UNITS/ML SUBCUT SCH ×4 (07:50→23:21)
[2023-01-08] MEDS: SODIUM HYPOCHLORITE 0.125% 473ML SOLUTION TOP SCH (09:49)
[2023-01-08] MEDS: TIMOLOL MALEATE 0.5% OPHTH DROPS 5ML EACHEYE SCH (09:50)
[2023-01-08] MEDS: LACTOBACILLUS GG CAPSULE PO SCH (09:50)
[2023-01-08] MEDS: CALCIUM ACETATE 667MG CAPSULE PO SCH (09:50)
[2023-01-08] MEDS: PANTOPRAZOLE 40MG DR TABLET PO SCH ×2 (09:50→22:57)
[2023-01-08] MEDS: MIDODRINE HCL 5MG TABLET PO SCH ×2 (13:00→21:00)
[2023-01-08] MEDS: HYDROCODONE/ACETAMINOPHEN 10/325MG TABLET PO PRN ×2 (15:42→23:22)
[2023-01-08] MEDS: ENOXAPARIN 100MG/ML SYR SUBCUT SCH (18:00)
[2023-01-08] MEDS: LATANOPROST 0.005% OPHTH DROPS 2.5ML BOTHEYE SCH (22:57)
[2023-01-08] MEDS: EPOETIN ALFA-EPBX 4,000 UNIT/ML VIAL SUBCUT SCH (22:59)
[2023-01-09] VITALS (12 sets, daily range): BP systolic 98–148; BP diastolic 49–95
[2023-01-09] MEDS: MIDODRINE HCL 5MG TABLET PO SCH ×3 (05:00→21:51)
[2023-01-09] MEDS: BRIMONIDINE 0.2% OPHTH DROPS 5ML BOTHEYE SCH ×3 (06:00→21:55)
[2023-01-09] MEDS: PANTOPRAZOLE 40MG DR TABLET PO SCH (07:07)
[2023-01-09] MEDS: BLOOD SUGAR DIAGNOSTIC STRIP TEST SCH ×4 (07:08→21:00)
[2023-01-09] MEDS: INSULIN LISPRO 100 UNITS/ML SUBCUT SCH ×4 (07:08→22:07)
[2023-01-09] MEDS: HYDROCODONE/ACETAMINOPHEN 10/325MG TABLET PO PRN ×2 (07:15→16:13)
[2023-01-09] MEDS ORDERED: LIDOCAINE HCL 1% 10 MG/ML 10ML VIAL ONE (07:32)
[2023-01-09] MEDS ORDERED: HEPARIN 1000 UNITS/ML 10ML ONE (07:32)
[2023-01-09 07:50] LABS: PHOSPHORUS 4.1 mg/dL (2.5-4.9)
[2023-01-09 08:00] LABS: BASOPHILS % 0.4 % (0.0-2.0); EOSINOPHILS % 1.8 % (0.0-5.0); HEMATOCRIT. 25.3 % (36.0-48.0); HEMOGLOBIN. 8.1 g/dL (12.0-16.0); LYMPHOCYTES % 8.1 % (20.0-50.0); MEAN CORPUSCULAR HEMOGLOBIN 30.7 pg (28.0-32.0); MEAN CORPUSCULAR VOLUME 95.9 fL (81.0-99.0); MEAN PLATELET VOLUME 8.6 fl (7.4-10.4); MONOCYTES % 6.9 % (2.0-8.0); NEUTROPHILS % 82.8 % (40.0-76.0); PLATELET 191 x1000/uL (130-400); RED BLOOD CELL COUNT 2.64 mill/uL (4.2-5.4); RED CELL DISTRIBUTION WIDTH 27.7 % (11.6-14.6)
[2023-01-09] MEDS: SODIUM HYPOCHLORITE 0.125% 473ML SOLUTION TOP SCH (09:00)
[2023-01-09] MEDS: CALCIUM ACETATE 667MG CAPSULE PO SCH ×3 (09:00→18:07)
[2023-01-09] MEDS: TIMOLOL MALEATE 0.5% OPHTH DROPS 5ML EACHEYE SCH (09:55)
[2023-01-09] MEDS: LACTOBACILLUS GG CAPSULE PO SCH (09:56)
[2023-01-09] MEDS ORDERED: POTASSIUM CHLORIDE 20MEQ/PACKET PO NR (10:00)
[2023-01-09] MEDS: CEFTRIAXONE 2GM DUPLEX 50 ML IV SCH (10:14)
[2023-01-09] MEDS: ENOXAPARIN 100MG/ML SYR SUBCUT SCH (18:07)
[2023-01-09] MEDS: HYDROMORPHONE HCL/PF 2MG/ML CPJ IV PRN (20:51)
[2023-01-09] MEDS: PANTOPRAZOLE SODIUM 40 MG/VIAL IV SCH (21:50)
[2023-01-09] MEDS: LATANOPROST 0.005% OPHTH DROPS 2.5ML BOTHEYE SCH (21:51)
[2023-01-10] MEDS: DIPHENHYDRAMINE 50MG/ML VIAL IV PRN (02:35)
[2023-01-10] MEDS: MIDODRINE HCL 5MG TABLET PO SCH ×3 (05:00→22:40)
[2023-01-10] MEDS: HYDROMORPHONE HCL/PF 2MG/ML CPJ IV PRN ×2 (06:28→18:26)
[2023-01-10] MEDS: BRIMONIDINE 0.2% OPHTH DROPS 5ML BOTHEYE SCH ×3 (06:29→22:39)
[2023-01-10] MEDS: BLOOD SUGAR DIAGNOSTIC STRIP TEST SCH ×4 (06:30→21:00)
[2023-01-10] MEDS: INSULIN LISPRO 100 UNITS/ML SUBCUT SCH ×4 (07:50→23:17)
[2023-01-10 08:00] VITALS: BP 97/57
[2023-01-10] MEDS: TIMOLOL MALEATE 0.5% OPHTH DROPS 5ML EACHEYE SCH (09:00)
[2023-01-10] MEDS: CEFTRIAXONE 2GM DUPLEX 50 ML IV SCH (09:09)
[2023-01-10] MEDS: PANTOPRAZOLE SODIUM 40 MG/VIAL IV SCH ×2 (09:09→22:39)
[2023-01-10] MEDS: CALCIUM ACETATE 667MG CAPSULE PO SCH ×2 (09:09→18:25)
[2023-01-10] MEDS: LACTOBACILLUS GG CAPSULE PO SCH (09:09)
[2023-01-10] MEDS: SODIUM HYPOCHLORITE 0.125% 473ML SOLUTION TOP SCH (09:09)
[2023-01-10 12:00] VITALS: BP 133/49
[2023-01-10 12:04] LABS: BASOPHILS % 0.6 % (0.0-2.0); EOSINOPHILS % 1.2 % (0.0-5.0); HEMATOCRIT. 27.7 % (36.0-48.0); HEMOGLOBIN. 8.4 g/dL (12.0-16.0); LYMPHOCYTES % 9.2 % (20.0-50.0); MEAN CORPUSCULAR HEMOGLOBIN 30.5 pg (28.0-32.0); MEAN PLATELET VOLUME 8.5 fl (7.4-10.4); MONOCYTES % 10.7 % (2.0-8.0); NEUTROPHILS % 78.3 % (40.0-76.0); PLATELET 175 x1000/uL (130-400); RED BLOOD CELL COUNT 2.76 mill/uL (4.2-5.4); RED CELL DISTRIBUTION WIDTH 28.2 % (11.6-14.6)
[2023-01-10 12:07] LABS: MEAN CORPUSCULAR VOLUME 100.1 fL (81.0-99.0)
[2023-01-10 16:00] VITALS: BP 98/74
[2023-01-10] MEDS: ENOXAPARIN 100MG/ML SYR SUBCUT SCH (18:25)
[2023-01-10 20:00] VITALS: BP 99/42
[2023-01-10] MEDS: LATANOPROST 0.005% OPHTH DROPS 2.5ML BOTHEYE SCH (22:40)
[2023-01-10] MEDS: EPOETIN ALFA-EPBX 4,000 UNIT/ML VIAL SUBCUT SCH (22:41)
[2023-01-11] VITALS (15 sets, daily range): BP systolic 93–150; BP diastolic 47–70
[2023-01-11] MEDS: BRIMONIDINE 0.2% OPHTH DROPS 5ML BOTHEYE SCH ×3 (06:00→21:42)
[2023-01-11 06:50] LABS: BASOPHILS % 0.6 % (0.0-2.0); EOSINOPHILS % 0.4 % (0.0-5.0); HEMATOCRIT. 25.9 % (36.0-48.0); HEMOGLOBIN. 8.1 g/dL (12.0-16.0); LYMPHOCYTES % 12.2 % (20.0-50.0); MEAN CORPUSCULAR HEMOGLOBIN 30.9 pg (28.0-32.0); MEAN CORPUSCULAR VOLUME 98.6 fL (81.0-99.0); MEAN PLATELET VOLUME 8.5 fl (7.4-10.4); MONOCYTES % 9.9 % (2.0-8.0); NEUTROPHILS % 76.9 % (40.0-76.0); PLATELET 220 x1000/uL (130-400); RED BLOOD CELL COUNT 2.63 mill/uL (4.2-5.4); RED CELL DISTRIBUTION WIDTH 28.1 % (11.6-14.6)
[2023-01-11] MEDS: MIDODRINE HCL 5MG TABLET PO SCH ×3 (07:09→21:42)
[2023-01-11] MEDS: BLOOD SUGAR DIAGNOSTIC STRIP TEST SCH ×4 (07:52→21:30)
[2023-01-11] MEDS: LACTOBACILLUS GG CAPSULE PO SCH (08:11)
[2023-01-11] MEDS: CEFTRIAXONE 2GM DUPLEX 50 ML IV SCH (08:11)
[2023-01-11] MEDS: CALCIUM ACETATE 667MG CAPSULE PO SCH ×2 (08:12→18:12)
[2023-01-11] MEDS: SODIUM HYPOCHLORITE 0.125% 473ML SOLUTION TOP SCH (08:13)
[2023-01-11] MEDS: TIMOLOL MALEATE 0.5% OPHTH DROPS 5ML EACHEYE SCH (08:14)
[2023-01-11] MEDS: INSULIN LISPRO 100 UNITS/ML SUBCUT SCH ×4 (08:30→21:44)
[2023-01-11] MEDS: PANTOPRAZOLE SODIUM 40 MG/VIAL IV SCH (09:08)
[2023-01-11] MEDS: HYDROCODONE/ACETAMINOPHEN 10/325MG TABLET PO PRN (09:30)
[2023-01-11] MEDS ORDERED: HYDROCODONE/ACETAMINOPHEN 5/325MG TABLET PO PRN (11:45)
[2023-01-11] MEDS ORDERED: ALBUTEROL (0.083%) 2.5MG/3ML NEB HHN PRN (12:45)
[2023-01-11] MEDS ORDERED: IPRATROPIUM/ALBUTEROL 0.5-3(2.5)MG/3ML NEB HHN PRN (12:45)
[2023-01-11] MEDS ORDERED: IPRATROPIUM BROMIDE (0.02%) 0.5MG/2.5ML NEB HHN PRN (12:45)
[2023-01-11] MEDS: ENOXAPARIN 100MG/ML SYR SUBCUT SCH (18:12)
[2023-01-11] MEDS: LATANOPROST 0.005% OPHTH DROPS 2.5ML BOTHEYE SCH (21:42)
[2023-01-12] MEDS: MIDODRINE HCL 5MG TABLET PO SCH ×3 (05:00→21:00)
[2023-01-12] MEDS: BRIMONIDINE 0.2% OPHTH DROPS 5ML BOTHEYE SCH ×3 (06:06→21:40)
[2023-01-12] MEDS: HYDROCODONE/ACETAMINOPHEN 10/325MG TABLET PO PRN (06:06)
[2023-01-12] MEDS: BLOOD SUGAR DIAGNOSTIC STRIP TEST SCH ×4 (07:40→21:39)
[2023-01-12 08:00] VITALS: BP 118/44
[2023-01-12] MEDS: CEFTRIAXONE 2GM/50ML (ADDEASE) 50 ML IV SCH (08:00)
[2023-01-12] MEDS: TIMOLOL MALEATE 0.5% OPHTH DROPS 5ML EACHEYE SCH (09:49)
[2023-01-12] MEDS: LACTOBACILLUS GG CAPSULE PO SCH (09:49)
[2023-01-12] MEDS: FAMOTIDINE 20MG/2ML VIAL IV SCH (09:49)
[2023-01-12] MEDS: CALCIUM ACETATE 667MG CAPSULE PO SCH ×2 (09:49→18:50)
[2023-01-12] MEDS: SODIUM HYPOCHLORITE 0.125% 473ML SOLUTION TOP SCH (09:50)
[2023-01-12] MEDS: INSULIN LISPRO 100 UNITS/ML SUBCUT SCH ×4 (10:18→21:00)
[2023-01-12 12:00] VITALS: BP 125/59
[2023-01-12 16:00] VITALS: BP 157/54
[2023-01-12 16:10] LABS: BASOPHILS % 0.6 % (0.0-2.0); EOSINOPHILS % 0.3 % (0.0-5.0); HEMATOCRIT. 26.3 % (36.0-48.0); LYMPHOCYTES % 8.3 % (20.0-50.0); MEAN CORPUSCULAR HEMOGLOBIN 29.7 pg (28.0-32.0); MEAN CORPUSCULAR VOLUME 97.2 fL (81.0-99.0); MEAN PLATELET VOLUME 8.1 fl (7.4-10.4); MONOCYTES % 6.1 % (2.0-8.0); NEUTROPHILS % 84.7 % (40.0-76.0); PLATELET 250 x1000/uL (130-400); RED CELL DISTRIBUTION WIDTH 27.7 % (11.6-14.6)
[2023-01-12] MEDS: ENOXAPARIN 100MG/ML SYR SUBCUT SCH (18:50)
[2023-01-12 20:00] VITALS: BP 158/74
[2023-01-12] MEDS: LATANOPROST 0.005% OPHTH DROPS 2.5ML BOTHEYE SCH (21:41)
[2023-01-13] VITALS: BP 132/68
[2023-01-13] MEDS ORDERED: VANCOMYCIN 2,000 MG in DEXT 5% WATER 500 ML IV NR (03:00)
[2023-01-13] MEDS: HYDROCODONE/ACETAMINOPHEN 10/325MG TABLET PO PRN ×2 (03:10→16:35)
[2023-01-13 04:00] VITALS: BP 156/81
[2023-01-13] MEDS: MIDODRINE HCL 5MG TABLET PO SCH ×3 (05:00→21:00)
[2023-01-13] MEDS: BRIMONIDINE 0.2% OPHTH DROPS 5ML BOTHEYE SCH ×3 (05:30→22:00)
[2023-01-13] MEDS: BLOOD SUGAR DIAGNOSTIC STRIP TEST SCH ×4 (06:30→21:00)
[2023-01-13 06:59] LABS: HEMATOCRIT. 25.7 % (36.0-48.0); HEMOGLOBIN. 7.8 g/dL (12.0-16.0); MEAN CORPUSCULAR HEMOGLOBIN 30.1 pg (28.0-32.0); MEAN CORPUSCULAR VOLUME 98.9 fL (81.0-99.0); MEAN PLATELET VOLUME 8.3 fl (7.4-10.4); PLATELET 252 x1000/uL (130-400); RED CELL DISTRIBUTION WIDTH 27.7 % (11.6-14.6)
[2023-01-13 07:14] LABS: PHOSPHORUS 2.4 mg/dL (2.5-4.9)
[2023-01-13 08:00] VITALS: BP 121/76
[2023-01-13] MEDS: CALCIUM ACETATE 667MG CAPSULE PO SCH ×2 (08:22→17:06)
[2023-01-13] MEDS: LACTOBACILLUS GG CAPSULE PO SCH (08:22)
[2023-01-13] MEDS: FAMOTIDINE 20MG/2ML VIAL IV SCH (08:22)
[2023-01-13] MEDS: SODIUM HYPOCHLORITE 0.125% 473ML SOLUTION TOP SCH (08:22)
[2023-01-13] MEDS: CEFTRIAXONE 2GM/50ML (ADDEASE) 50 ML IV SCH (08:22)
[2023-01-13] MEDS: TIMOLOL MALEATE 0.5% OPHTH DROPS 5ML EACHEYE SCH (08:22)
[2023-01-13] MEDS: INSULIN LISPRO 100 UNITS/ML SUBCUT SCH ×4 (08:24→21:00)
[2023-01-13 12:00] VITALS: BP 106/61
[2023-01-13 13:40] LABS: PLATELET ESTIMATE NORMAL
[2023-01-13] MEDS ORDERED: IPRATROPIUM/ALBUTEROL 0.5-3(2.5)MG/3ML NEB HHN PRN (15:15)
[2023-01-13 16:00] VITALS: BP 102/50
[2023-01-13] MEDS: ENOXAPARIN 100MG/ML SYR SUBCUT SCH (17:06)
[2023-01-13] MEDS ORDERED: MORPHINE SULFATE 2 MG/ML CPJ (NOT FOR IM USE) IV PRN (17:45)
[2023-01-13] MEDS: HYDROMORPHONE HCL/PF 2MG/ML CPJ IV PRN (18:17)
[2023-01-13 20:00] VITALS: BP 139/61
[2023-01-13] MEDS: LATANOPROST 0.005% OPHTH DROPS 2.5ML BOTHEYE SCH (21:00)
[2023-01-14] VITALS (13 sets, daily range): BP systolic 114–157; BP diastolic 44–74
[2023-01-14] MEDS: HYDROMORPHONE HCL/PF 2MG/ML CPJ IV PRN ×3 (05:44→20:14)
[2023-01-14] MEDS: BRIMONIDINE 0.2% OPHTH DROPS 5ML BOTHEYE SCH ×3 (05:52→21:17)
[2023-01-14] MEDS: MIDODRINE HCL 5MG TABLET PO SCH ×3 (05:52→20:15)
[2023-01-14] MEDS: BLOOD SUGAR DIAGNOSTIC STRIP TEST SCH ×4 (06:42→20:15)
[2023-01-14 06:55] LABS: HEMATOCRIT. 22.7 % (36.0-48.0); HEMOGLOBIN. 7.1 g/dL (12.0-16.0); MEAN CORPUSCULAR HEMOGLOBIN 30.7 pg (28.0-32.0); MEAN CORPUSCULAR VOLUME 97.7 fL (81.0-99.0); MEAN PLATELET VOLUME 8.2 fl (7.4-10.4); PLATELET 218 x1000/uL (130-400); RED BLOOD CELL COUNT 2.32 mill/uL (4.2-5.4); RED CELL DISTRIBUTION WIDTH 27.9 % (11.6-14.6)
[2023-01-14 07:26] LABS: PHOSPHORUS 2.9 mg/dL (2.5-4.9)
[2023-01-14] MEDS: INSULIN LISPRO 100 UNITS/ML SUBCUT SCH ×4 (07:50→20:30)
[2023-01-14] MEDS: SODIUM HYPOCHLORITE 0.125% 473ML SOLUTION TOP SCH (09:29)
[2023-01-14] MEDS: TIMOLOL MALEATE 0.5% OPHTH DROPS 5ML EACHEYE SCH (09:29)
[2023-01-14] MEDS: LACTOBACILLUS GG CAPSULE PO SCH (09:30)
[2023-01-14] MEDS: CALCIUM ACETATE 667MG CAPSULE PO SCH ×2 (09:30→17:19)
[2023-01-14] MEDS: CEFTRIAXONE 2GM DUPLEX 50 ML IV SCH (09:32)
[2023-01-14] MEDS: FAMOTIDINE 20MG/2ML VIAL IV SCH (09:39)
[2023-01-14] MEDS: HYDROCODONE/ACETAMINOPHEN 10/325MG TABLET PO PRN (16:01)
[2023-01-14] MEDS: EPOETIN ALFA-EPBX 4,000 UNIT/ML VIAL SUBCUT SCH (20:12)
[2023-01-14] MEDS: LATANOPROST 0.005% OPHTH DROPS 2.5ML BOTHEYE SCH (20:32)
[2023-01-14 21:15] LABS: PLATELET ESTIMATE NORMAL
[2023-01-15] VITALS (12 sets, daily range): BP systolic 101–159; BP diastolic 50–78
[2023-01-15] MEDS: HYDROMORPHONE HCL/PF 2MG/ML CPJ IV PRN ×5 (02:24→21:27)
[2023-01-15] MEDS: MIDODRINE HCL 5MG TABLET PO SCH ×3 (05:00→21:27)
[2023-01-15] MEDS: BLOOD SUGAR DIAGNOSTIC STRIP TEST SCH ×4 (06:38→21:33)
[2023-01-15] MEDS: BRIMONIDINE 0.2% OPHTH DROPS 5ML BOTHEYE SCH ×3 (06:38→21:43)
[2023-01-15] MEDS: INSULIN LISPRO 100 UNITS/ML SUBCUT SCH ×4 (07:50→22:04)
[2023-01-15] MEDS: TIMOLOL MALEATE 0.5% OPHTH DROPS 5ML EACHEYE SCH (09:00)
[2023-01-15] MEDS: SODIUM HYPOCHLORITE 0.125% 473ML SOLUTION TOP SCH (09:00)
[2023-01-15] MEDS: FAMOTIDINE 20MG/2ML VIAL IV SCH (09:00)
[2023-01-15] MEDS: CALCIUM ACETATE 667MG CAPSULE PO SCH ×2 (09:00→17:51)
[2023-01-15] MEDS: LACTOBACILLUS GG CAPSULE PO SCH (09:00)
[2023-01-15 10:24] LABS: BASOPHILS % 0.4 % (0.0-2.0); HEMATOCRIT. 26.3 % (36.0-48.0); LYMPHOCYTES % 9.8 % (20.0-50.0); MEAN CORPUSCULAR HEMOGLOBIN 30.4 pg (28.0-32.0); MEAN CORPUSCULAR VOLUME 99.8 fL (81.0-99.0); MEAN PLATELET VOLUME 8.2 fl (7.4-10.4); MONOCYTES % 5.9 % (2.0-8.0); NEUTROPHILS % 82.9 % (40.0-76.0); PLATELET 260 x1000/uL (130-400); RED BLOOD CELL COUNT 2.63 mill/uL (4.2-5.4); RED CELL DISTRIBUTION WIDTH 28.6 % (11.6-14.6)
[2023-01-15] MEDS: MORPHINE SULFATE 2 MG/ML CPJ (NOT FOR IM USE) IV PRN ×3 (12:06→22:50)
[2023-01-15] MEDS ORDERED: SODIUM POLYSTYRENE SULFONATE 15 G/60 ML BOT PO NR (16:15)
[2023-01-15] MEDS: CEFTRIAXONE 2GM DUPLEX 50 ML IV SCH (19:19)
[2023-01-15] MEDS: LATANOPROST 0.005% OPHTH DROPS 2.5ML BOTHEYE SCH (21:43)
[2023-01-16] VITALS: BP 129/60
[2023-01-16 04:00] VITALS: BP 107/62
[2023-01-16] MEDS: MIDODRINE HCL 5MG TABLET PO SCH ×3 (05:00→23:52)
[2023-01-16] MEDS: BRIMONIDINE 0.2% OPHTH DROPS 5ML BOTHEYE SCH ×2 (06:00→22:00)
[2023-01-16] MEDS: HYDROMORPHONE HCL/PF 2MG/ML CPJ IV PRN (07:13)
[2023-01-16] MEDS: BLOOD SUGAR DIAGNOSTIC STRIP TEST SCH ×4 (07:20→21:00)
[2023-01-16 08:00] VITALS: BP 141/79
[2023-01-16 09:12] LABS: HEMATOCRIT. 26.7 % (36.0-48.0); HEMOGLOBIN. 8.3 g/dL (12.0-16.0); MEAN CORPUSCULAR HEMOGLOBIN 30.4 pg (28.0-32.0); MEAN PLATELET VOLUME 8.2 fl (7.4-10.4); PLATELET 268 x1000/uL (130-400); RED BLOOD CELL COUNT 2.72 mill/uL (4.2-5.4); RED CELL DISTRIBUTION WIDTH 27.8 % (11.6-14.6)
[2023-01-16] MEDS: LACTOBACILLUS GG CAPSULE PO SCH (09:34)
[2023-01-16] MEDS: HYDROCODONE/ACETAMINOPHEN 10/325MG TABLET PO PRN (09:35)
[2023-01-16] MEDS: SODIUM HYPOCHLORITE 0.125% 473ML SOLUTION TOP SCH (09:35)
[2023-01-16] MEDS: FAMOTIDINE 20MG/2ML VIAL IV SCH (09:40)
[2023-01-16] MEDS: CALCIUM ACETATE 667MG CAPSULE PO SCH (09:40)
[2023-01-16] MEDS: TIMOLOL MALEATE 0.5% OPHTH DROPS 5ML EACHEYE SCH (09:40)
[2023-01-16] MEDS: CEFTRIAXONE 2GM DUPLEX 50 ML IV SCH (09:55)
[2023-01-16 09:56] LABS: PHOSPHORUS 3.4 mg/dL (2.5-4.9)
[2023-01-16] MEDS: INSULIN LISPRO 100 UNITS/ML SUBCUT SCH ×2 (09:56→12:50)
[2023-01-16 12:00] VITALS: BP 113/77
[2023-01-16 14:15] LABS: PLATELET ESTIMATE NORMAL
[2023-01-16 16:00] VITALS: BP 120/60
[2023-01-16] MEDS ORDERED: HEPARIN 1000 UNITS/ML 2ML VIAL IV NR (19:30)
[2023-01-16] MEDS ORDERED: HEPARIN SODIUM 1,000 UNIT/1ML VIAL IV NR (19:30)
[2023-01-16 20:00] VITALS: BP 109/68
[2023-01-16] MEDS: GABAPENTIN 300MG CAPSULE PO SCH (23:51)
[2023-01-16] MEDS: EPOETIN ALFA-EPBX 4,000 UNIT/ML VIAL SUBCUT SCH (23:53)
[2023-01-16] MEDS: LATANOPROST 0.005% OPHTH DROPS 2.5ML BOTHEYE SCH (23:54)
[2023-01-17] VITALS (10 sets, daily range): BP systolic 119–141; BP diastolic 43–71
[2023-01-17] MEDS: BRIMONIDINE 0.2% OPHTH DROPS 5ML BOTHEYE SCH ×3 (00:40→13:17)
[2023-01-17] MEDS: INSULIN LISPRO 100 UNITS/ML SUBCUT SCH ×5 (00:52→21:00)
[2023-01-17] MEDS: MORPHINE SULFATE 2 MG/ML CPJ (NOT FOR IM USE) IV PRN (07:07)
[2023-01-17] MEDS: BLOOD SUGAR DIAGNOSTIC STRIP TEST SCH ×4 (07:20→21:00)
[2023-01-17] MEDS: CEFTRIAXONE 2 G in DEXTROSE 5% WATER 50 ML IV SCH (08:00)
[2023-01-17] MEDS: CALCIUM ACETATE 667MG CAPSULE PO SCH ×2 (09:00→18:06)
[2023-01-17] MEDS: TIMOLOL MALEATE 0.5% OPHTH DROPS 5ML EACHEYE SCH (09:00)
[2023-01-17] MEDS: GABAPENTIN 300MG CAPSULE PO SCH ×2 (09:00→23:49)
[2023-01-17] MEDS: FAMOTIDINE 20MG/2ML VIAL IV SCH (09:00)
[2023-01-17] MEDS: LACTOBACILLUS GG CAPSULE PO SCH (09:00)
[2023-01-17] MEDS: SODIUM HYPOCHLORITE 0.125% 473ML SOLUTION TOP SCH (09:00)
[2023-01-17] MEDS: ALTEPLASE 2MG/VIAL ITC NR (11:00)
[2023-01-17] MEDS ORDERED: LIDOCAINE HCL 1% 10 MG/ML 10ML VIAL ONE (12:47)
[2023-01-17] MEDS: MIDODRINE HCL 5MG TABLET PO SCH (13:25)
[2023-01-17] MEDS: METOCLOPRAMIDE HCL 10MG/2ML VIAL IV SCH (17:44)
[2023-01-17] MEDS: HYDROCODONE/ACETAMINOPHEN 10/325MG TABLET PO PRN (23:48)
[2023-01-17] MEDS: LATANOPROST 0.005% OPHTH DROPS 2.5ML BOTHEYE SCH (23:49)
[2023-01-18] VITALS: BP 128/57
[2023-01-18] MEDS: MIDODRINE HCL 5MG TABLET PO SCH ×3 (00:04→21:00)
[2023-01-18] MEDS: METOCLOPRAMIDE HCL 10MG/2ML VIAL IV SCH ×2 (00:06→12:00)
[2023-01-18 04:00] VITALS: BP 129/51
[2023-01-18] MEDS: BLOOD SUGAR DIAGNOSTIC STRIP TEST SCH ×4 (07:20→21:00)
[2023-01-18] MEDS: INSULIN LISPRO 100 UNITS/ML SUBCUT SCH ×4 (07:50→22:43)
[2023-01-18 08:00] VITALS: BP 159/62
[2023-01-18] MEDS: SODIUM HYPOCHLORITE 0.125% 473ML SOLUTION TOP SCH (09:00)
[2023-01-18] MEDS: FAMOTIDINE 20MG/2ML VIAL IV SCH (10:33)
[2023-01-18] MEDS: GABAPENTIN 300MG CAPSULE PO SCH ×2 (10:33→22:38)
[2023-01-18] MEDS: CALCIUM ACETATE 667MG CAPSULE PO SCH ×2 (10:33→18:24)
[2023-01-18] MEDS: LACTOBACILLUS GG CAPSULE PO SCH (10:33)
[2023-01-18] MEDS: TIMOLOL MALEATE 0.5% OPHTH DROPS 5ML EACHEYE SCH (10:34)
[2023-01-18] MEDS: CEFTRIAXONE 2 G in DEXTROSE 5% WATER 50 ML IV SCH (10:34)
[2023-01-18 12:00] VITALS: BP 144/62
[2023-01-18 12:21] LABS: FERRITIN 1262 ng/mL (10-291)
[2023-01-18] MEDS: BRIMONIDINE 0.2% OPHTH DROPS 5ML BOTHEYE SCH ×3 (14:00→22:42)
[2023-01-18 16:45] VITALS: BP 121/53
[2023-01-18 20:00] VITALS: BP 141/56
[2023-01-18] MEDS: LATANOPROST 0.005% OPHTH DROPS 2.5ML BOTHEYE SCH (22:38)
[2023-01-18] MEDS: EPOETIN ALFA-EPBX 4,000 UNIT/ML VIAL SUBCUT SCH (22:41)
[2023-01-19 04:00] VITALS: BP 138/48
[2023-01-19] MEDS: MIDODRINE HCL 5MG TABLET PO SCH ×3 (05:00→21:00)
[2023-01-19] MEDS: BRIMONIDINE 0.2% OPHTH DROPS 5ML BOTHEYE SCH ×3 (06:01→22:02)
[2023-01-19 08:00] VITALS: BP 132/66
[2023-01-19] MEDS: CEFTRIAXONE 2 G in DEXTROSE 5% WATER 50 ML IV SCH (09:46)
[2023-01-19] MEDS: GABAPENTIN 300MG CAPSULE PO SCH ×2 (09:46→22:01)
[2023-01-19] MEDS: CALCIUM ACETATE 667MG CAPSULE PO SCH ×2 (09:46→16:52)
[2023-01-19] MEDS: FAMOTIDINE 20MG/2ML VIAL IV SCH (09:46)
[2023-01-19] MEDS: LACTOBACILLUS GG CAPSULE PO SCH (09:47)
[2023-01-19] MEDS: TIMOLOL MALEATE 0.5% OPHTH DROPS 5ML EACHEYE SCH (09:47)
[2023-01-19] MEDS: SODIUM HYPOCHLORITE 0.125% 473ML SOLUTION TOP SCH (09:48)
[2023-01-19] MEDS: INSULIN LISPRO 100 UNITS/ML SUBCUT SCH ×4 (10:00→22:31)
[2023-01-19 12:00] VITALS: BP 125/64
[2023-01-19] MEDS: BLOOD SUGAR DIAGNOSTIC STRIP TEST SCH ×4 (12:00→21:00)
[2023-01-19] MEDS ORDERED: METOCLOPRAMIDE HCL 10MG/2ML VIAL IV NR (15:00)
[2023-01-19] MEDS ORDERED: SORBITOL 70% SOLN 30ML PO NR (15:00)
[2023-01-19] MEDS ORDERED: BISACODYL 5MG TABLET PO NR (15:00)
[2023-01-19 16:00] VITALS: BP 161/67
[2023-01-19 18:24] LABS: BASOPHILS % 0.4 % (0.0-2.0); EOSINOPHILS % 2.6 % (0.0-5.0); HEMATOCRIT. 26.1 % (36.0-48.0); LYMPHOCYTES % 7.5 % (20.0-50.0); MEAN CORPUSCULAR VOLUME 101.4 fL (81.0-99.0); MEAN PLATELET VOLUME 8.3 fl (7.4-10.4); NEUTROPHILS % 81.5 % (40.0-76.0); PLATELET 279 x1000/uL (130-400); RED BLOOD CELL COUNT 2.57 mill/uL (4.2-5.4); RED CELL DISTRIBUTION WIDTH 28.9 % (11.6-14.6)
[2023-01-19 18:29] LABS: CHLORIDE 104 mEq/L (98-107)
[2023-01-19] MEDS ORDERED: SODIUM POLYSTYRENE SULFONATE 15 G/60 ML BOT PO NR (19:15)
[2023-01-19 20:00] VITALS: BP 142/61
[2023-01-19] MEDS: LATANOPROST 0.005% OPHTH DROPS 2.5ML BOTHEYE SCH (21:00)
[2023-01-20] VITALS (9 sets, daily range): BP systolic 70–138; BP diastolic 26–68
[2023-01-20 03:02] LABS: BASOPHILS % 0.7 % (0.0-2.0); HEMOGLOBIN. 7.6 g/dL (12.0-16.0); LYMPHOCYTES % 7.2 % (20.0-50.0); MEAN CORPUSCULAR HEMOGLOBIN 31.7 pg (28.0-32.0); MEAN CORPUSCULAR VOLUME 100.5 fL (81.0-99.0); MEAN PLATELET VOLUME 8.1 fl (7.4-10.4); MONOCYTES % 8.4 % (2.0-8.0); NEUTROPHILS % 81.7 % (40.0-76.0); PLATELET 266 x1000/uL (130-400); RED BLOOD CELL COUNT 2.39 mill/uL (4.2-5.4); RED CELL DISTRIBUTION WIDTH 28.7 % (11.6-14.6)
[2023-01-20 03:08] LABS: INR 1.1; PROTHROMBIN TIME 11.4 sec (9.6-11.0)
[2023-01-20 03:17] LABS: CHLORIDE 107 mEq/L (98-107)
[2023-01-20 03:25] LABS: PHOSPHORUS 3.7 mg/dL (2.5-4.9)
[2023-01-20] MEDS: MIDODRINE HCL 5MG TABLET PO SCH ×3 (06:01→22:00)
[2023-01-20] MEDS: BRIMONIDINE 0.2% OPHTH DROPS 5ML BOTHEYE SCH ×3 (06:01→22:00)
[2023-01-20] MEDS: BLOOD SUGAR DIAGNOSTIC STRIP TEST SCH ×4 (07:04→21:00)
[2023-01-20] MEDS: INSULIN LISPRO 100 UNITS/ML SUBCUT SCH ×4 (07:50→21:00)
[2023-01-20] MEDS: LACTOBACILLUS GG CAPSULE PO SCH (08:17)
[2023-01-20] MEDS: GABAPENTIN 300MG CAPSULE PO SCH ×2 (08:18→22:00)
[2023-01-20] MEDS: CALCIUM ACETATE 667MG CAPSULE PO SCH ×2 (08:18→17:00)
[2023-01-20] MEDS: CEFTRIAXONE 2 G in DEXTROSE 5% WATER 50 ML IV SCH (08:52)
[2023-01-20] MEDS: SODIUM HYPOCHLORITE 0.125% 473ML SOLUTION TOP SCH (09:00)
[2023-01-20] MEDS: TIMOLOL MALEATE 0.5% OPHTH DROPS 5ML EACHEYE SCH (09:00)
[2023-01-20] MEDS: FAMOTIDINE 20MG/2ML VIAL IV SCH (09:00)
[2023-01-20] MEDS ORDERED: SODIUM POLYSTYRENE SULFONATE 15 G/60 ML BOT NG NR (09:30)
[2023-01-20] MEDS ORDERED: SIMETHICONE 40 MG/0.6 ML 15ML ONE (10:01)
[2023-01-20] MEDS ORDERED: PROPOFOL 200MG/20ML VIAL IV ONE (14:22)
[2023-01-20] MEDS ORDERED: ETOMIDATE 2MG/ML 10ML VIAL IV ONE (14:22)
[2023-01-20] MEDS ORDERED: NALOXONE HCL 0.4MG/ML VIAL IV PRN (15:15)
[2023-01-20] MEDS ORDERED: ALTEPLASE 2MG/VIAL ITC NR (19:30)
[2023-01-20] MEDS: LATANOPROST 0.005% OPHTH DROPS 2.5ML BOTHEYE SCH (21:00)
[2023-01-21] VITALS (14 sets, daily range): BP systolic 84–112; BP diastolic 40–61
[2023-01-21] MEDS: MIDODRINE HCL 5MG TABLET PO SCH ×3 (05:55→20:32)
[2023-01-21] MEDS: INSULIN LISPRO 100 UNITS/ML SUBCUT SCH ×4 (05:58→21:00)
[2023-01-21] MEDS: BLOOD SUGAR DIAGNOSTIC STRIP TEST SCH ×4 (05:59→21:00)
[2023-01-21] MEDS: BRIMONIDINE 0.2% OPHTH DROPS 5ML BOTHEYE SCH ×3 (06:00→22:00)
[2023-01-21] MEDS: METOCLOPRAMIDE HCL 10MG/2ML VIAL IV SCH ×3 (06:05→18:08)
[2023-01-21 07:24] LABS: BASOPHILS % 0.3 % (0.0-2.0); EOSINOPHILS % 1.6 % (0.0-5.0); HEMATOCRIT. 24.8 % (36.0-48.0); HEMOGLOBIN. 7.6 g/dL (12.0-16.0); LYMPHOCYTES % 7.9 % (20.0-50.0); MEAN CORPUSCULAR HEMOGLOBIN 30.7 pg (28.0-32.0); MEAN CORPUSCULAR VOLUME 99.4 fL (81.0-99.0); MEAN PLATELET VOLUME 8.2 fl (7.4-10.4); MONOCYTES % 7.2 % (2.0-8.0); PLATELET 272 x1000/uL (130-400); RED BLOOD CELL COUNT 2.49 mill/uL (4.2-5.4); RED CELL DISTRIBUTION WIDTH 28.6 % (11.6-14.6)
[2023-01-21] MEDS: CEFTRIAXONE 2 G in DEXTROSE 5% WATER 50 ML IV SCH (08:00)
[2023-01-21 08:56] LABS: PHOSPHORUS 4.1 mg/dL (2.5-4.9)
[2023-01-21] MEDS: SODIUM HYPOCHLORITE 0.125% 473ML SOLUTION TOP SCH (09:00)
[2023-01-21] MEDS: LACTOBACILLUS GG CAPSULE PO SCH (09:00)
[2023-01-21] MEDS: GABAPENTIN 300MG CAPSULE PO SCH ×2 (09:00→20:25)
[2023-01-21] MEDS: TIMOLOL MALEATE 0.5% OPHTH DROPS 5ML EACHEYE SCH (09:00)
[2023-01-21] MEDS: CALCIUM ACETATE 667MG CAPSULE PO SCH ×2 (09:00→17:00)
[2023-01-21] MEDS: FAMOTIDINE 20MG/2ML VIAL IV SCH (09:00)
[2023-01-21] MEDS ORDERED: ALBUMIN HUMAN 12.5GM/50ML (25%) IV NR (10:00)
[2023-01-21] MEDS ORDERED: HEPARIN SODIUM 1,000 UNIT/1ML VIAL IV NR (10:15)
[2023-01-21] MEDS ORDERED: IPRATROPIUM/ALBUTEROL 0.5-3(2.5)MG/3ML NEB HHN PRN (15:30)
[2023-01-21] MEDS ORDERED: DOCUSATE SODIUM 250MG CAPSULE PO SCH (17:00)
[2023-01-21] MEDS: HYDROCODONE/ACETAMINOPHEN 10/325MG TABLET PO PRN (20:25)
[2023-01-21] MEDS: LATANOPROST 0.005% OPHTH DROPS 2.5ML BOTHEYE SCH (20:26)
[2023-01-22] VITALS: BP 103/49
[2023-01-22] MEDS: METOCLOPRAMIDE HCL 10MG/2ML VIAL IV SCH ×4 (00:34→18:43)
[2023-01-22 04:00] VITALS: BP 109/50
[2023-01-22] MEDS: HYDROCODONE/ACETAMINOPHEN 10/325MG TABLET PO PRN (05:13)
[2023-01-22] MEDS: MIDODRINE HCL 5MG TABLET PO SCH ×3 (05:18→21:36)
[2023-01-22] MEDS: BRIMONIDINE 0.2% OPHTH DROPS 5ML BOTHEYE SCH ×3 (05:19→21:36)
[2023-01-22 06:12] LABS: BASOPHILS % 0.7 % (0.0-2.0); EOSINOPHILS % 1.4 % (0.0-5.0); HEMATOCRIT. 26.1 % (36.0-48.0); HEMOGLOBIN. 8.2 g/dL (12.0-16.0); LYMPHOCYTES % 11.5 % (20.0-50.0); MEAN CORPUSCULAR HEMOGLOBIN 31.1 pg (28.0-32.0); MEAN CORPUSCULAR VOLUME 99.8 fL (81.0-99.0); MEAN PLATELET VOLUME 8.2 fl (7.4-10.4); MONOCYTES % 7.3 % (2.0-8.0); NEUTROPHILS % 79.1 % (40.0-76.0); PLATELET 291 x1000/uL (130-400); RED BLOOD CELL COUNT 2.62 mill/uL (4.2-5.4); RED CELL DISTRIBUTION WIDTH 29.5 % (11.6-14.6)
[2023-01-22 06:29] LABS: PHOSPHORUS 3.7 mg/dL (2.5-4.9)
[2023-01-22] MEDS: INSULIN LISPRO 100 UNITS/ML SUBCUT SCH ×4 (07:13→21:00)
[2023-01-22] MEDS: BLOOD SUGAR DIAGNOSTIC STRIP TEST SCH ×4 (07:20→21:00)
[2023-01-22 08:00] VITALS: BP 130/67
[2023-01-22] MEDS: DOCUSATE SODIUM SUGAR FREE 100MG/10ML UDC PEG SCH ×2 (08:10→18:43)
[2023-01-22] MEDS: GABAPENTIN 300MG CAPSULE PO SCH ×2 (08:10→21:36)
[2023-01-22] MEDS: LACTOBACILLUS GG CAPSULE PO SCH (08:10)
[2023-01-22] MEDS: CALCIUM ACETATE 667MG CAPSULE PO SCH ×2 (08:10→18:43)
[2023-01-22] MEDS: FAMOTIDINE 20MG/2ML VIAL IV SCH (08:11)
[2023-01-22] MEDS: TIMOLOL MALEATE 0.5% OPHTH DROPS 5ML EACHEYE SCH (08:21)
[2023-01-22] MEDS: CEFTRIAXONE 2 G in DEXTROSE 5% WATER 50 ML IV SCH (08:24)
[2023-01-22] MEDS: SODIUM HYPOCHLORITE 0.125% 473ML SOLUTION TOP SCH (09:00)
[2023-01-22 12:00] VITALS: BP 129/67
[2023-01-22] MEDS ORDERED: BISACODYL 10MG SUPP PR NR (14:45)
[2023-01-22 16:00] VITALS: BP 102/60
[2023-01-22 20:00] VITALS: BP 102/68
[2023-01-22] MEDS: LATANOPROST 0.005% OPHTH DROPS 2.5ML BOTHEYE SCH (21:00)
[2023-01-23] VITALS (12 sets, daily range): BP systolic 94–158; BP diastolic 51–64
[2023-01-23] MEDS: METOCLOPRAMIDE HCL 10MG/2ML VIAL IV SCH
[2023-01-23] MEDS ORDERED: METOCLOPRAMIDE HCL 10MG/2ML VIAL IV SCH (03:00)
[2023-01-23 05:46] LABS: BASOPHILS % 0.6 % (0.0-2.0); EOSINOPHILS % 1.2 % (0.0-5.0); HEMATOCRIT. 24.7 % (36.0-48.0); HEMOGLOBIN. 7.7 g/dL (12.0-16.0); LYMPHOCYTES % 7.5 % (20.0-50.0); MEAN CORPUSCULAR HEMOGLOBIN 31.2 pg (28.0-32.0); MEAN CORPUSCULAR VOLUME 99.8 fL (81.0-99.0); MONOCYTES % 7.5 % (2.0-8.0); NEUTROPHILS % 83.2 % (40.0-76.0); PLATELET 280 x1000/uL (130-400); RED BLOOD CELL COUNT 2.48 mill/uL (4.2-5.4); RED CELL DISTRIBUTION WIDTH 28.3 % (11.6-14.6)
[2023-01-23] MEDS: BRIMONIDINE 0.2% OPHTH DROPS 5ML BOTHEYE SCH ×3 (06:00→21:38)
[2023-01-23 06:01] LABS: PHOSPHORUS 3.8 mg/dL (2.5-4.9)
[2023-01-23] MEDS: MIDODRINE HCL 5MG TABLET PO SCH ×3 (06:42→21:24)
[2023-01-23] MEDS: TIMOLOL MALEATE 0.5% OPHTH DROPS 5ML EACHEYE SCH (09:00)
[2023-01-23] MEDS: SODIUM HYPOCHLORITE 0.125% 473ML SOLUTION TOP SCH (09:00)
[2023-01-23] MEDS ORDERED: HEPARIN SODIUM 1,000 UNIT/1ML VIAL IV NR ×2 (10:15→10:30)
[2023-01-23] MEDS: FAMOTIDINE 20MG/2ML VIAL IV SCH (10:39)
[2023-01-23] MEDS: GABAPENTIN 300MG CAPSULE PO SCH ×2 (10:40→21:24)
[2023-01-23] MEDS: LACTOBACILLUS GG CAPSULE PO SCH (10:40)
[2023-01-23] MEDS: CEFTRIAXONE 2 G in DEXTROSE 5% WATER 50 ML IV SCH (10:40)
[2023-01-23] MEDS: DOCUSATE SODIUM SUGAR FREE 100MG/10ML UDC PEG SCH ×2 (10:41→20:36)
[2023-01-23] MEDS ORDERED: LIDOCAINE HCL 1% 10 MG/ML 10ML VIAL ONE (10:45)
[2023-01-23] MEDS: LATANOPROST 0.005% OPHTH DROPS 2.5ML BOTHEYE SCH (21:24)
[2023-01-23] MEDS ORDERED: MORPHINE SULFATE 2 MG/ML CPJ (NOT FOR IM USE) IV PRN (22:15)
[2023-01-24] VITALS: BP 99/60
[2023-01-24 04:00] VITALS: BP 111/53
[2023-01-24] MEDS: MIDODRINE HCL 5MG TABLET PO SCH ×2 (05:59→11:02)
[2023-01-24] MEDS: BRIMONIDINE 0.2% OPHTH DROPS 5ML BOTHEYE SCH ×3 (06:00→22:21)
[2023-01-24 06:31] LABS: BASOPHILS % 0.3 % (0.0-2.0); EOSINOPHILS % 1.5 % (0.0-5.0); HEMOGLOBIN. 7.4 g/dL (12.0-16.0); LYMPHOCYTES % 8.8 % (20.0-50.0); MEAN CORPUSCULAR HEMOGLOBIN 31.7 pg (28.0-32.0); MEAN CORPUSCULAR VOLUME 102.3 fL (81.0-99.0); MEAN PLATELET VOLUME 8.2 fl (7.4-10.4); MONOCYTES % 6.4 % (2.0-8.0); PLATELET 220 x1000/uL (130-400); RED BLOOD CELL COUNT 2.34 mill/uL (4.2-5.4); RED CELL DISTRIBUTION WIDTH 28.4 % (11.6-14.6)
[2023-01-24 06:33] LABS: PHOSPHORUS 3.1 mg/dL (2.5-4.9)
[2023-01-24 08:00] VITALS: BP 111/63
[2023-01-24] MEDS: LACTOBACILLUS GG CAPSULE PO SCH (08:42)
[2023-01-24] MEDS: GABAPENTIN 300MG CAPSULE PO SCH ×2 (08:43→21:41)
[2023-01-24] MEDS: DOCUSATE SODIUM SUGAR FREE 100MG/10ML UDC PEG SCH ×2 (08:43→18:05)
[2023-01-24] MEDS: CEFTRIAXONE 2 G in DEXTROSE 5% WATER 50 ML IV SCH (08:56)
[2023-01-24] MEDS: TIMOLOL MALEATE 0.5% OPHTH DROPS 5ML EACHEYE SCH (08:59)
[2023-01-24] MEDS: SODIUM HYPOCHLORITE 0.125% 473ML SOLUTION TOP SCH (09:00)
[2023-01-24 12:00] VITALS: BP 120/51
[2023-01-24] MEDS: POLYETHYLENE GLYCOL 3350 (17GM) 1 DOSE PACK PEG SCH (13:39)
[2023-01-24 16:00] VITALS: BP 161/57
[2023-01-24 20:00] VITALS: BP 123/70
[2023-01-24] MEDS: LATANOPROST 0.005% OPHTH DROPS 2.5ML BOTHEYE SCH (21:41)
[2023-01-25] VITALS (14 sets, daily range): BP systolic 92–163; BP diastolic 44–70
[2023-01-25] MEDS: BRIMONIDINE 0.2% OPHTH DROPS 5ML BOTHEYE SCH ×3 (06:56→21:38)
[2023-01-25] MEDS: SODIUM HYPOCHLORITE 0.125% 473ML SOLUTION TOP SCH (09:00)
[2023-01-25] MEDS: LACTOBACILLUS GG CAPSULE PO SCH (09:24)
[2023-01-25] MEDS: CEFTRIAXONE 2 G in DEXTROSE 5% WATER 50 ML IV SCH (09:24)
[2023-01-25] MEDS: TIMOLOL MALEATE 0.5% OPHTH DROPS 5ML EACHEYE SCH (09:24)
[2023-01-25] MEDS: DOCUSATE SODIUM SUGAR FREE 100MG/10ML UDC PEG SCH ×2 (09:25→17:56)
[2023-01-25] MEDS: POLYETHYLENE GLYCOL 3350 (17GM) 1 DOSE PACK PEG SCH (09:25)
[2023-01-25] MEDS: GABAPENTIN 300MG CAPSULE PO SCH ×2 (09:25→21:19)
[2023-01-25] MEDS ORDERED: HEPARIN SODIUM 1,000 UNIT/1ML VIAL IV NR (15:30)
[2023-01-25] MEDS ORDERED: EPOETIN ALFA-EPBX 4,000 UNIT/ML VIAL SUBCUT SCH (21:00)
[2023-01-25] MEDS: LATANOPROST 0.005% OPHTH DROPS 2.5ML BOTHEYE SCH (21:17)
[2023-01-26] VITALS: BP 123/56
[2023-01-26 00:03] LABS: BASOPHILS % 0.2 % (0.0-2.0); EOSINOPHILS % 1.8 % (0.0-5.0); HEMATOCRIT. 22.5 % (36.0-48.0); MEAN CORPUSCULAR HEMOGLOBIN 31.4 pg (28.0-32.0); MEAN CORPUSCULAR VOLUME 101.2 fL (81.0-99.0); MEAN PLATELET VOLUME 8.1 fl (7.4-10.4); MONOCYTES % 6.8 % (2.0-8.0); NEUTROPHILS % 83.2 % (40.0-76.0); PLATELET 202 x1000/uL (130-400); RED BLOOD CELL COUNT 2.22 mill/uL (4.2-5.4); RED CELL DISTRIBUTION WIDTH 27.9 % (11.6-14.6)
[2023-01-26] MEDS: HYDROCODONE/ACETAMINOPHEN 10/325MG TABLET PO PRN ×2 (00:16→06:00)
[2023-01-26 00:18] LABS: PHOSPHORUS 2.2 mg/dL (2.5-4.9)
[2023-01-26 04:00] VITALS: BP 128/52
[2023-01-26] MEDS: BRIMONIDINE 0.2% OPHTH DROPS 5ML BOTHEYE SCH ×3 (05:50→22:00)
[2023-01-26] MEDS: CEFTRIAXONE 2 G in DEXTROSE 5% WATER 50 ML IV SCH (08:00)
[2023-01-26] MEDS: SODIUM HYPOCHLORITE 0.125% 473ML SOLUTION TOP SCH (09:00)
[2023-01-26] MEDS ORDERED: FAMOTIDINE 20MG TABLET PO SCH (09:00)
[2023-01-26] MEDS: POLYETHYLENE GLYCOL 3350 (17GM) 1 DOSE PACK PEG SCH (09:48)
[2023-01-26] MEDS: GABAPENTIN 300MG CAPSULE PO SCH (09:48)
[2023-01-26] MEDS: LACTOBACILLUS GG CAPSULE PO SCH (09:48)
[2023-01-26] MEDS: TIMOLOL MALEATE 0.5% OPHTH DROPS 5ML EACHEYE SCH (09:48)
[2023-01-26] MEDS: DOCUSATE SODIUM SUGAR FREE 100MG/10ML UDC PEG SCH ×2 (09:48→18:39)
[2023-01-26] MEDS ORDERED: DEXTROSE 50% WATER 50ML SYRINGE IV PRN (10:00)
[2023-01-26 12:00] VITALS: BP 108/85
[2023-01-26] MEDS: BLOOD SUGAR DIAGNOSTIC STRIP TEST SCH ×3 (12:27→21:00)
[2023-01-26] MEDS: INSULIN LISPRO 100 UNITS/ML SUBCUT SCH ×3 (12:41→21:00)
[2023-01-26] MEDS ORDERED: POTASSIUM-SODIUM PHOSPHATE POWDER PACKET PO NR (13:15)
[2023-01-26 15:47] LABS: HEMATOCRIT 25.6 % (36.0-48.0); HEMOGLOBIN 7.9 g/dL (12.0-16.0); MEAN CORPUSCULAR HEMOGLOBIN 31.4 pg (28.0-32.0); MEAN CORPUSCULAR VOLUME 101.9 fL (81.0-99.0); PLATELET 219 x1000/uL (130-400); RED BLOOD CELL COUNT 2.51 mill/uL (4.2-5.4); RED CELL DISTRIBUTION WIDTH 28.2 % (11.6-14.6)
[2023-01-26 16:00] VITALS: BP 138/60
[2023-01-26 20:00] VITALS: BP 153/60
[2023-01-26] MEDS: LATANOPROST 0.005% OPHTH DROPS 2.5ML BOTHEYE SCH (21:00)
[2023-01-27] VITALS: BP 130/49
[2023-01-27] MEDS: GABAPENTIN 300MG CAPSULE PO SCH (02:37)
[2023-01-27 04:00] VITALS: BP 123/56
[2023-01-27] MEDS: BRIMONIDINE 0.2% OPHTH DROPS 5ML BOTHEYE SCH (07:07)
[2023-01-27] MEDS: BLOOD SUGAR DIAGNOSTIC STRIP TEST SCH (07:08)
== END 2023-01-27 08:09 | DRG 710 ==
LOC: ER 07:56 → MICUSO 12:45 → MICUNO 01-04 19:15 → 6EST 01-06 14:21
PROVIDERS: ADMIT Internal Medicine; ATTEND Internal Medicine
PROC: 5A1D70Z Performance of Urinary Filtration, Intermittent, Less than 6 Hours Per Day (ICD-10-PCS; principal; 2022-12-26)
PROC: 5A1D70Z Performance of Urinary Filtration, Intermittent, Less than 6 Hours Per Day (ICD-10-PCS; 2022-12-28)
PROC: 02HV33Z Insertion of Infusion Device into Superior Vena Cava, Percutaneous Approach (ICD-10-PCS; 2022-12-29)
PROC: B548ZZA Ultrasonography of Superior Vena Cava, Guidance (ICD-10-PCS; 2022-12-29)
PROC: 5A1D70Z Performance of Urinary Filtration, Intermittent, Less than 6 Hours Per Day (ICD-10-PCS; 2022-12-30)
PROC: B41F1ZZ Fluoroscopy of Right Lower Extremity Arteries using Low Osmolar Contrast (ICD-10-PCS; 2023-01-03)
PROC: 04H Lower Arteries, Insertion (ICD-10-PCS; 2023-01-03)
PROC: 30233N1 Transfusion of Nonautologous Red Blood Cells into Peripheral Vein, Percutaneous Approach (ICD-10-PCS; 2023-01-03)
PROC: 0QB10ZZ Excision of Sacrum, Open Approach (ICD-10-PCS; 2023-01-08)
PROC: 5A1D70Z Performance of Urinary Filtration, Intermittent, Less than 6 Hours Per Day (ICD-10-PCS; 2023-01-08)
PROC: 5A1D70Z Performance of Urinary Filtration, Intermittent, Less than 6 Hours Per Day (ICD-10-PCS; 2023-01-09)
PROC: 5A1D70Z Performance of Urinary Filtration, Intermittent, Less than 6 Hours Per Day (ICD-10-PCS; 2023-01-10)
PROC: 5A1D70Z Performance of Urinary Filtration, Intermittent, Less than 6 Hours Per Day (ICD-10-PCS; 2023-01-13)
PROC: 5A1D70Z Performance of Urinary Filtration, Intermittent, Less than 6 Hours Per Day (ICD-10-PCS; 2023-01-15)
PROC: 5A1D70Z Performance of Urinary Filtration, Intermittent, Less than 6 Hours Per Day (ICD-10-PCS; 2023-01-19)
PROC: 0DB68ZX Excision of Stomach, Via Natural or Artificial Opening Endoscopic, Diagnostic (ICD-10-PCS; 2023-01-20)
PROC: 5A1D70Z Performance of Urinary Filtration, Intermittent, Less than 6 Hours Per Day (ICD-10-PCS; 2023-01-21)
PROC: 05H533Z Insertion of Infusion Device into Right Subclavian Vein, Percutaneous Approach (ICD-10-PCS; 2023-01-23)
PROC: B546ZZA Ultrasonography of Right Subclavian Vein, Guidance (ICD-10-PCS; 2023-01-23)
PROC: 5A1D70Z Performance of Urinary Filtration, Intermittent, Less than 6 Hours Per Day (ICD-10-PCS; 2023-01-24)
PROC: 5A12012 Performance of Cardiac Output, Single, Manual (ICD-10-PCS; 2023-01-27)
PROC: 0BH17EZ Insertion of Endotracheal Airway into Trachea, Via Natural or Artificial Opening (ICD-10-PCS; 2023-01-27)
PROC: 0DH63UZ Insertion of Feeding Device into Stomach, Percutaneous Approach (ICD-10-PCS; 2023-01-27)
PROC: 3E0G76Z Introduction of Nutritional Substance into Upper GI, Via Natural or Artificial Opening (ICD-10-PCS; 2023-01-27)
DX: A41.59 Other Gram-negative sepsis (principal); J96.00 Acute respiratory failure, unspecified whether with hypoxia or hypercapnia; R65.21 Severe sepsis with septic shock; G92.8 Other toxic encephalopathy; E43 Unspecified severe protein-calorie malnutrition; L89.154 Pressure ulcer of sacral region, stage 4; I70.261 Atherosclerosis of native arteries of extremities with gangrene, right leg; E11.52 Type 2 diabetes mellitus with diabetic peripheral angiopathy with gangrene; I48.0 Paroxysmal atrial fibrillation; E87.20 Acidosis, unspecified; E88.09 Other disorders of plasma-protein metabolism, not elsewhere classified; I27.20 Pulmonary hypertension, unspecified; E11.22 Type 2 diabetes mellitus with diabetic chronic kidney disease; E11.42 Type 2 diabetes mellitus with diabetic polyneuropathy; E78.00 Pure hypercholesterolemia, unspecified; N18.6 End stage renal disease; M85.80 Other specified disorders of bone density and structure, unspecified site; E11.65 Type 2 diabetes mellitus with hyperglycemia; E87.6 Hypokalemia; F41.9 Anxiety disorder, unspecified; I08.1 Rheumatic disorders of both mitral and tricuspid valves; M86.9 Osteomyelitis, unspecified; L97.419 Non-pressure chronic ulcer of right heel and midfoot with unspecified severity; Z20.822 Contact with and (suspected) exposure to COVID-19; S82.301A Unspecified fracture of lower end of right tibia, initial encounter for closed fracture; S82.831A Other fracture of upper and lower end of right fibula, initial encounter for closed fracture; D53.9 Nutritional anemia, unspecified; E87.1 Hypo-osmolality and hyponatremia; E87.5 Hyperkalemia; K29.70 Gastritis, unspecified, without bleeding; K56.41 Fecal impaction; R13.10 Dysphagia, unspecified; F14.21 Cocaine dependence, in remission; D63.1 Anemia in chronic kidney disease; Z68.32 Body mass index [BMI] 32.0-32.9, adult; B19.20 Unspecified viral hepatitis C without hepatic coma; N39.0 Urinary tract infection, site not specified; I13.2 Hypertensive heart and chronic kidney disease with heart failure and with stage 5 chronic kidney disease, or end stage renal disease; I50.32 Chronic diastolic (congestive) heart failure; F19.10 Other psychoactive substance abuse, uncomplicated; L97.429 Non-pressure chronic ulcer of left heel and midfoot with unspecified severity; Z79.82 Long term (current) use of aspirin; Z79.899 Other long term (current) drug therapy; Z86.73 Personal history of transient ischemic attack (TIA), and cerebral infarction without residual deficits; Z86.74 Personal history of sudden cardiac arrest; Z82.49 Family history of ischemic heart disease and other diseases of the circulatory system; Z88.0 Allergy status to penicillin; Z89.519 Acquired absence of unspecified leg below knee; Z99.2 Dependence on renal dialysis; Z89.611 Acquired absence of right leg above knee; Z89.612 Acquired absence of left leg above knee; Z93.1 Gastrostomy status; Z79.84 Long term (current) use of oral hypoglycemic drugs
CPT/HCPCS: 31500; 36246; 36415; 36573; 36581; 36600; 71045; 71275; 73620; 73630; 74018; 74176; 75635; 75710; 76700; 77001; 80048; 80053; 80162; 80202; 80305; 81003; 82140; 82330; 82375; 82607; 82728; 82746; 82805; 82962; 83540; 83550; 83605; 83735; 84100; 84132; 84134; 84145; 84484; 85014; 85018; 85025; 85027; 85044; 85379; 86705; 86709; 86803; 86850; 86900; 86920; 87070; 87075; 87077; 87186; 87340; 87426; 88305; 90935; 92610; 92950; 93005; 93306; 93923; 93970; 99285; A6261; C1725; C1750; C1760; C1769; C1892; C1893; C9113; J0696; J0885; J1160; J1170; J1200; J1644; J1650; J1815; J2185; J2250; J2270; J2370; J2704; J2765; J2997; J3010; J3370; J3480; J3490; J7030; J7050; J7060; P9016; P9047; Q9967; A4315